=== PATIENT | female | born 1985 | race Asian ===

== ENCOUNTER 2021-05-26 05:26 | Inpatient (IN) ==
[2021-05-26] MEDS ORDERED: SODIUM CHLORIDE 0.9% 1000ML 1,000 ML IV ONE (06:37)
[2021-05-26] MEDS ORDERED: ONDANSETRON INJ 2 MG/ML 2 ML VIAL IV STA (06:37)
[2021-05-26] MEDS ORDERED: MoRPHine SULFATE 4 MG/ML 1 ML CARP\\VIAL IV STA (06:37)
--- NOTE | 2021-05-26 06:39 | Emergency Department Note ---
Impression & Plan Metastasis from pancreatic cancer ADMIT ED Provider Note HPI: The patient is a 36-year-old female who presents emergency department chief complaint of bilateral flank pain. Patient states she is also some constipation. Patient states the symptoms have been ongoing for about the past month. Patient states she had an episode of vomiting overnight and therefore presented to the emergency department for further evaluation. On arrival, the patient is hemodynamically stable, she is in no acute distress on my initial evaluation. She is saturating well on room air, afebrile on presentation. Of note, her at the bedside is serving as the primary historian as the patient does not primarily speak Croatian but does have fair understanding. ROS: -: Bilateral flank pain. -GI: Constipation x1 month. *10 point review systems was conducted and is otherwise negative unless stated above *Outpatient medications and allergy history reviewed PE: General: Alert, NAD HEENT: Normocephalic, atraumatic Eyes: Extraocular eye movement is intact, no scleral erythema Pulmonary: Clear to auscultation bilaterally, no wheezing Cardio: Regular rate and rhythm GI: Abdomen is soft, moderate flank tenderness bilaterally to palpation, moderate upper abdominal tenderness without guarding or rigidity : No suprapubic tenderness MSK: No evidence of trauma or malformation of the extremities, no edema Skin: No evidence of rash Neuro: Alert, no focal deficits Psychiatric: 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 IV was established, lab work obtained, patient was placed on a cardiac tech. CT imaging of the abdomen pelvis was ordered with IV contrast and unfortunately shows evidence of what appears to be pancreatic adenocarcinoma with metastasis to the liver and possibly the stomach as well. There is noted to be lymphatic metastasis near the periportal lymph nodes as well as the mesenteric arteries. Patient's lab work shows multiple electrolyte derangements including hyponatremia 121, hypokalemia 2.6, hypochloremia. Patient was IV fluid resuscitated in the ED. She was given morphine for pain. I discussed all the above findings via the coffee weigher iPad with the patient and her at the bedside, I did speak with on-call oncology, Dr. Victor, who is in agreement for inpatient consultation. We will plan for admission to the h ospitalist service here [facility] for oncology consultation to discuss further treatment options and possible biopsy although this does appear to be a very severe case of metastatic disease. I did stress the severity of the diagnosis with the and his at the bedside, they are understanding of the diagnosis at this time. Patient was ordered potassium repletion IV, will require further potassium repletion as an inpatient. Patient was in agreement for admission to this facility as was her at the bedside, patient was admitted to the hospitalist service in stable condition. Diagnosis: 1. Metastatic cancer of the abdomen on CT imaging 2. Acute on chronic abdominal pain 3. Hyponatremia 4. Hypokalemia 5. Hypochloremia 6. Constipation Disposition: Admission Dewayne Naik DO Emergency Medicine Past Med/Surg History Social History Smoking Status: Never smoker Preferred Language: Uzbek Feels Safe at Home: Yes Allergies Allergies Allergy/AdvReac Type Severity Reaction Status Date / Time No Known Allergies Allergy Unverified 05/26/21 08:02 Home Meds Home Medications Medication Instructions Recorded Confirmed bisacodyl 5 mg tablet,delayed 5 mg PO UD 05/26/21 05/26/21 release (Dulcolax (bisacodyl)) cyclobenzaprine 5 mg tablet 5 mg PO BID PRN 05/26/21 05/26/21 levocetirizine 5 mg tablet 5 mg PO BID 05/26/21 05/26/21 multivitamin 1 tab PO QAM 05/26/21 05/26/21 Results & Data (ED) Vital Signs Vital Signs - 24 hr 05/26/21 05:34 05/26/21 06:58 05/26/21 08:58 Temperature 36.5 C Temperature Source Temporal Artery Scan Pulse Rate 104 H Pulse Rate [Apical] 99 H 104 H Respiratory Rate 20 18 18 Respiratory Effort / Characteristics Non-Labored Respiratory Depth Normal Respiratory Pattern Regular Blood Pressure 128/88 Blood Pressure [Left Arm] 139/95 Blood Pressure Mean 101 Blood Pressure Mean [Left Arm] 109 Blood Pressure Position Sitting Pulse Oximetry 99 98 97 Oxygen Delivery Method Room Air Room Air Room Air Sepsis Recent Fever Within 48 Hours No Sepsis New/Unexplained Change in Mental Status N/A Sepsis Action Taken by Nursing No Action Required Laboratory Data Result diagrams: 05/26/21 06:09 05/26/21 06:15 Lab Results 05/26/21 05/26/21 05/26/21 Range/Units 06:09 06:12 06:12 WBC 7.60 (4.8-10.8) K/uL RBC 4.00 L (4.2-5.4) M/uL Hgb 10.9 L (12.0-16.0) g/dL Hct 32.3 L (37-47) % MCV 80.8 (80-100) fL MCH 27.3 (25-34) pg MCHC 33.7 (32-36) g/dL RDW Std Deviation 36.8 (36.4-46.3) fL RDW Coeff of Mary 12.6 (11.5-14.5) % Plt Count 357 (130-400) K/uL MPV 9.1 (7.4-10.4) fL Immature Gran % (Auto) 0.1 % Neut % (Auto) 74.8 % Lymph % (Auto) 12.8 % [place] % (Auto) 8.0 % Eos % (Auto) 4.2 % Baso % (Auto) 0.1 % Neut # (Auto) 5.68 (1.4-6.5) K/uL Lymph # (Auto) 0.97 L (1.2-3.4) K/uL [place] # (Auto) 0.61 H (0.11-0.59) K/uL Eos # (Auto) 0.32 (0-0.5) K/uL Baso # (Auto) 0.01 (0-0.2) K/uL Immature Gran # (Auto) 0.01 (0.00-0.02) K/uL Sodium (136-145) mmol/L Potassium (3.5-5.1) mmol/L Chloride (98-107) mmol/L Carbon Dioxide (21-32) mmol/L Anion Gap (3-11) BUN (6-23) mg/dl Creatinine (0.6-1.2) mg/dl Est Cr Clr Drug Dosing Est GFR ( Amer) ml/min Est GFR (Non-Af Amer) ml/min BUN/Creatinine Ratio (10-20) Glucose (70-99(Fasting)) mg/dl Calcium (8.5-10.1) mg/dl Total Bilirubin (0.2-1.0) mg/dl AST (13-39) U/L ALT (7-52) U/L Alkaline Phosphatase (34-104) U/L Total Protein (6.0-8.3) gm/dl Albumin (3.4-5.0) gm/dl Globulin (2.5-4.0) gm/dl Albumin/Globulin Ratio (0.9-2) Lipase (11-82) U/L Urine Color Yellow Urine Appearance Clear (Clear) Urine pH 7.0 (4.5-7.5) Ur Specific [place] 1.014 (1.000-1.030) Urine Protein Negative (Negative) Urine Glucose (UA) Negative (Negative) Urine Ketones 4+ H (Negative) Urine Blood 3+ H (Negative) Urine Nitrite Negative (Negative) Urine Bilirubin Negative (Negative) Urine Urobilinogen Negative (Negative) Ur Leukocyte Esterase Negative (Negative) Urine WBC (Auto) 1-5 (0-5) /hpf Urine RBC (Auto) >30 H (0-4) /hpf U Hyaline Cast (Auto) 1-5 (0-5) /lpf U Epithel Cells (Auto) 20-30 H (0-5) /lpf Urine Bacteria (Auto) Negative (Negative) POC Ur Test (NEG) Urine Opiates Screen Neg (Neg) Ur Methadone, Qual Neg (Neg) Urine Barbiturates Neg (Neg) Ur Phencyclidine (PCP) Neg (Neg) U Amphetamin/Meth Scrn Neg (Neg) MDMA (Ecstasy) Screen Neg (Neg) U Benzodiazepines Scrn Neg (Neg) Ur Cocaine Metabolite Neg (Neg) U Marijuana (THC) Screen Neg (Neg) 05/26/21 05/26/21 Range/Units 06:15 06:15 WBC (4.8-10.8) K/uL RBC (4.2-5.4) M/uL Hgb (12.0-16.0) g/dL Hct (37-47) % MCV (80-100) fL MCH (25-34) pg MCHC (32-36) g/dL RDW Std Deviation (36.4-46.3) fL RDW Coeff of Mary (11.5-14.5) % Plt Count (130-400) K/uL MPV (7.4-10.4) fL Immature Gran % (Auto) % Neut % (Auto) % Lymph % (Auto) % [place] % (Auto) % Eos % (Auto) % Baso % (Auto) % Neut # (Auto) (1.4-6.5) K/uL Lymph # (Auto) (1.2-3.4) K/uL [place] # (Auto) (0.11-0.59) K/uL Eos # (Auto) (0-0.5) K/uL Baso # (Auto) (0-0.2) K/uL Immature Gran # (Auto) (0.00-0.02) K/uL Sodium 121 L (136-145) mmol/L Potassium 2.6 L (3.5-5.1) mmol/L Chloride 87 L (98-107) mmol/L Carbon Dioxide 24 (21-32) mmol/L Anion Gap 10 (3-11) BUN 3 L (6-23) mg/dl Creatinine 0.38 L (0.6-1.2) mg/dl Est Cr Clr Drug Dosing Not Reportable Est GFR ( Amer) > 150.0 ml/min Est GFR (Non-Af Amer) 135.3 ml/min BUN/Creatinine Ratio 7.9 L (10-20) Glucose 117 H (70-99(Fasting)) mg/dl Calcium 8.7 (8.5-10.1) mg/dl Total Bilirubin 0.7 (0.2-1.0) mg/dl AST 16 (13-39) U/L ALT 14 (7-52) U/L Alkaline Phosphatase 63 (34-104) U/L Total Protein 7.3 (6.0-8.3) gm/dl Albumin 4.3 (3.4-5.0) gm/dl Globulin 3.0 (2.5-4.0) gm/dl Albumin/Globulin Ratio 1.4 (0.9-2) Lipase 18 (11-82) U/L Urine Color Urine Appearance (Clear) Urine pH (4.5-7.5) Ur Specific [place] (1.000-1.030) Urine Protein (Negative) Urine Glucose (UA) (Negative) Urine Ketones (Negative) Urine Blood (Negative) Urine Nitrite (Negative) Urine Bilirubin (Negative) Urine Urobilinogen (Negative) Ur Leukocyte Esterase (Negative) Urine WBC (Auto) (0-5) /hpf Urine RBC (Auto) (0-4) /hpf U Hyaline Cast (Auto) (0-5) /lpf U Epithel Cells (Auto) (0-5) /lpf Urine Bacteria (Auto) (Negative) POC Ur Test NEG (NEG) Urine Opiates Screen (Neg) Ur Methadone, Qual (Neg) Urine Barbiturates (Neg) Ur Phencyclidine (PCP) (Neg) U Amphetamin/Meth Scrn (Neg) MDMA (Ecstasy) Screen (Neg) U Benzodiazepines Scrn (Neg) Ur Cocaine Metabolite (Neg) U Marijuana (THC) Screen (Neg) Administered Medications Potassium Chloride/Sodium Chloride (Normal Saline W/20 Meq Kcl) 20 meq in 1,000 mls @ 150 mls/hr IV .Q6H40M [facility]; Protocol Stop: 06/25/21 07:14 Last Admin: 05/26/21 07:34 Dose: 150 mls/hr Documented by: [id number] Discontinued Medications Sodium Chloride (Nss 1000ml) 1,000 mls @ 999 mls/hr IV .Q1H1M ONE Stop: 05/26/21 07:37 Last Infusion: 05/26/21 07:57 Dose: 0 mls/hr Documented by: [id number] Admin: 05/26/21 06:49 Dose: 999 mls/hr Documented by: [id number] Ioversol (Optiray 320 100ml) 94 ml IV ONCE ONE Stop: 05/26/21 07:26 Last Admin: 05/26/21 07:25 Dose: 94 ml Documented by: [id number] Morphine Sulfate (Morphine Sulfate 4 Mg/Ml 1 Ml Carp\Vial) 4 mg IV NOW STA Stop: 05/26/21 06:38 Last Admin: 05/26/21 06:49 Dose: 4 mg Documented by: [id number] Ondansetron HCl (Ondansetron Inj 2 Mg/Ml 2 Ml Vial) 4 mg IV NOW STA Stop: 05/26/21 06:38 Last Admin: 05/26/21 06:49 Dose: 4 mg Documented by: [id number] Imaging Data Radiologist's Impression: Abdomen/Pelvis CT 05/26/21 06:[address] WITH IV CONTRAST CT DOSE: 286.28 mGy.cm HISTORY: Acute bilateral flank pain with nausea and vomiting b/l flank pain TECHNIQUE: Multiaxial CT images of the abdomen and pelvis were performed following the IV administration of 94 cc of Optiray, A dose lowering technique was utilized adhering to the principles of ALARA. COMPARISON STUDY: None. FINDINGS: Patchy bibasilar groundglass and nodular consolidative subcentimeter densities of the lung bases. Mild bibasilar mucous plugging. No pneumatosis or pneumoperitoneum. Unremarkable spleen, gallbladder and adrenal glands. Periportal edema. Patent portal vein. There are at least 5 suspicious masses of the liver measuring up to 2.3 cm within the right hepatic lobe. There is a large infiltrative mass involving the pancreatic body with ill-defined margins which renders it difficult to measure. Upstream pancreatic ductal dilation with numerous surround ing necrotic lymphatic metastasis which encases the celiac trunk, superior mesenteric and renal arteries. 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 The large and chronic mass encases and narrows the splenic artery with circumferential encasement of the common hepatic artery. Unremarkable kidneys. Urinary bladder is within normal limits. Heterogeneous uterus with suggestion of numerous fibroids. Small volume of free pelvic fluid. No abdominal aortic aneurysm. Unremarkable IVC. There is wall thickening involving the lesser curvature of the stomach with adjacent inflammatory stranding additional wall thickening is noted within the distal stomach. No biliary ductal dilation. Trace abdominal pelvic ascites. Moderate fecal retention. Nonspecific mild wall thickening of the ascending colon. The appendix is fluid-filled however appears noninflamed. Unremarkable soft tissues. No acute fracture or destructive bone lesion identified. IMPRESSION: 1. Large infiltrative pancreatic body mass suggestive of primary pancreatic adenocarcinoma results in upstream pancreatic ductal dilation. Vascular involvement includes occlusion of the splenic vein with encasement of the celiac trunk vessels resulting in narrowing of the splenic artery. 2. Hepatic metastasis are noted along with multifocal gastrohepatic, periportal and retroperitoneal lymphatic metastasis. Lymphatic metastasis encase the superior mesenteric and renal arteries. 3. There is wall thickening with adjacent inflammatory stranding involving the greater curvature of the proximal stomach suspicious for gastric invasion. 4. Periportal edema without evidence of biliary obstruction. 5. Moderate fecal retention. 6. Additional findings as above. ACT 112: Negative or not required by law. The above report was generated using voice recognition software. It may contain grammatical, syntax or spelling errors. Electronically signed by: Adonay Green M.D. 05/26/2021 8:22 AM Discharge Plan Visit Data Chief Complaint: Back Injury/Pain Stated Complaint: BACK PAIN,ABD PAIN,NAUSEA,TENSION ED Provider: Dewayne Naik Discharge Problem: Metastasis from pancreatic cancer Forms Stand Alone Forms: [facility] Prescriptions Prescriptions: No Action multivitamin Tablet 1 tab PO QAM RF: 0 bisacodyl [Dulcolax (bisacodyl)] 5 mg Tablet,Delayed Release (Dr/Ec) 5 mg PO UD RF: 0 cyclobenzaprine 5 mg tablet 5 mg PO BID PRN (Reason: Muscle Spasm) RF: 0 levocetirizine 5 mg tablet 5 mg PO BID RF: 0 Referrals Referrals: PCP,NO [Primary Care Provider] -
[2021-05-26 06:47] LABS: Basophils # (auto) 0.01 K/uL (0-0.2); Basophils % (auto) 0.1 %; Eosinophils # (auto) 0.32 K/uL (0-0.5); Eosinophils % (auto) 4.2 %; Hematocrit (blood only) 32.3 % (37-47); Hemoglobin 10.9 g/dL (12.0-16.0); Immature Granulocytes # (auto) 0.01 K/uL (0.00-0.02); Immature Granulocytes % (auto) 0.1 %; Lymphocytes # (auto) 0.97 K/uL (1.2-3.4); Lymphocytes % (auto) 12.8 %; Mean Corpuscular Hemoglobin 27.3 pg (25-34); Mean Corpuscular Hgb Conc 33.7 g/dL (32-36); Mean Corpuscular Volume 80.8 fL (80-100); Mean Platelet Volume 9.1 fL (7.4-10.4); Monocytes # (auto) 0.61 K/uL (0.11-0.59); Neutrophils # (auto) 5.68 K/uL (1.4-6.5); Neutrophils % (auto) 74.8 %; Platelet Count 357 K/uL (130-400); RDW Coefficient of Variation 12.6 % (11.5-14.5); RDW Standard Deviation 36.8 fL (36.4-46.3)
[2021-05-26 06:59] LABS: Appearance Urine Clear (Clear); Bacteria Urine Automated Negative (Negative); Bilirubin Urine Negative (Negative); Blood Urine 3+ (Negative); Color Urine Yellow; Epithelial Cell Urine Auto 20-30 /lpf (0-5); Glucose Urine UA Negative (Negative); Ketones Urine 4+ (Negative); Leukocyte Esterase Urine Negative (Negative); Nitrite Urine Negative (Negative); Protein Urine Negative (Negative); RBC Urine Automated >30 /hpf (0-4); Specific Gravity Urine 1.014 (1.000-1.030); Urobilinogen Urine Negative (Negative)
[2021-05-26 07:02] LABS: Alanine Aminotransferase 14 U/L (7-52); Albumin Globulin Ratio 1.4 (0.9-2); Albumin Level 4.3 gm/dl (3.4-5.0); Alkaline Phosphatase 63 U/L (34-104); Anion Gap 10 (3-11); Aspartate Aminotransferase 16 U/L (13-39); BUN Creatinine Ratio 7.9 (10-20); Bilirubin,Total 0.7 mg/dl (0.2-1.0); Blood Urea Nitrogen 3 mg/dl (6-23); Calcium 8.7 mg/dl (8.5-10.1); Carbon Dioxide 24 mmol/L (21-32); Chloride 87 mmol/L (98-107); Est GFR (African American) > 150.0 ml/min; Est GFR (Non-African American) 135.3 ml/min; Glucose 117 mg/dl (70-99(Fasting)); Lipase 18 U/L (11-82); Potassium 2.6 mmol/L (3.5-5.1); Sodium 121 mmol/L (136-145); Total Protein 7.3 gm/dl (6.0-8.3)
[2021-05-26] MEDS ORDERED: NSS + 20MEQ KCL 20 MEQ/1,000 ML BAG IV SCH ×2 (07:15→12:48)
[2021-05-26] MEDS ORDERED: OPTIRAY 320 100ml IV ONE (07:25)
[2021-05-26 07:58] LABS: Amphetamines+Metham, Urine Neg (Neg); Barbiturates, Urine Neg (Neg); Benzodiazepine, Urine Neg (Neg); Cocaine, Urine Neg (Neg); MDMA (Ecstacy), Urine Neg (Neg); Methadone, Urine Neg (Neg); Opiate, Urine Neg (Neg); Phencyclidine, Urine Neg (Neg)
--- NOTE | 2021-05-26 08:23 | CT Scan Report ---
ABDOMEN AND PELVIS CT WITH IV CONTRAST CT DOSE: 286.28 mGy.cm HISTORY: Acute bilateral flank pain with nausea and vomiting b/l flank pain TECHNIQUE: Multiaxial CT images of the abdomen and pelvis were performed following the IV administrat ion of 94 cc of Optiray, A dose lowering technique was utilized adhering to the principles of ALARA. COMPARISON STUDY: None. FINDINGS: Patchy bibasilar groundglass and nodular consolidative subcentimeter densities of the lung bases. Mild bibasilar mucous plugging. No pneumatosis or pneumoperitoneum. Unremarkable spleen, gallbladder and adrenal glands. Periportal edema. Patent portal vein. There are at least 5 suspicious masses of the liver measuring up to 2.3 cm within the right hepatic lobe. There is a large infiltrative mass involving the pancreatic body with ill-defined margins which renders it difficult to measure. Upstream pancreatic ductal dilation with numerous surrounding necrotic lymphat ic metastasis which encases the celiac trunk, superior mesenteric and renal arteries. There is occlus ion of the splenic vein with collateral vessels. The large and chronic mass encases and narrows the s plenic artery with circumferential encasement of the common hepatic artery. Unremarkable kidneys. Urinary bladder is within normal limits. Heterogeneous uterus with suggestion o f numerous fibroids. Small volume of free pelvic fluid. No abdominal aortic aneurysm. Unremarkable IV C. There is wall thickening involving the lesser curvature of the stomach with adjacent inflammatory str anding additional wall thickening is noted within the distal stomach. No biliary ductal dilation. Tra ce abdominal pelvic ascites. Moderate fecal retention. Nonspecific mild wall thickening of the ascend ing colon. The appendix is fluid-filled however appears noninflamed. Unremarkable soft tissues. No ac marisela fracture or destructive bone lesion identified. IMPRESSION: 1. Large infiltrative pancreatic body mass suggestive of primary pancreatic adenocarcinoma results in upstream pancreatic ductal dilation. Vascular involvement includes occlusion of the splenic vein wit h encasement of the celiac trunk vessels resulting in narrowing of the splenic artery. 2. Hepatic metastasis are noted along with multifocal gastrohepatic, periportal and retroperitoneal l ymphatic metastasis. Lymphatic metastasis encase the superior mesenteric and renal arteries. 3. There is wall thickening with adjacent inflammatory stranding involving the greater curvature of t he proximal stomach suspicious for gastric invasion. 4. Periportal edema without evidence of biliary obstruction. 5. Moderate fecal retention. 6. Additional findings as above. ACT 112: Negative or not required by law. The above report was generated using voice recognition software. It may contain grammatical, syntax o r spelling errors. Electronically signed by: Adonay Green M.D. 05/26/2021 8:22 AM
[2021-05-26] MEDS ORDERED: POTASSIUM CHLORIDE CRTAB 20 MEQ TABCR PO STA (09:25)
--- NOTE | 2021-05-26 09:40 | History & Physical Report ---
Date of Service May 26, 2021 Assessment & Plan (1) Metastasis from pancreatic cancer: (2) Abdominal pain: (3) Hypokalemia: (4) Hyponatremia: Plan: This is a 36 yr old Polish speaking female who is otherwise healthy except for chronic constipation who presents to ED 2/2 to low back pain x [address] a/p: 1. Large infiltrative pancreatic body mass suggestive of primary pancreatic adenocarcinoma results in upstream pancreatic ductal dilation. V ascular involvement includes occlusion of the splenic vein with encasement of the celiac trunk vessels resulting in narrowing of the splenic artery. 2. Hepatic metastasis are noted along with multifocal gastrohepatic, periportal and retroperitoneal lymphatic metastasis. Lymphatic metastasis encase the superior mesenteric and renal arteries. 3. There is wall thickening with adjacent inflammatory stranding involving the greater curvature of the proximal stomach suspicious for gastric invasion. 4. Periportal edema without evidence of biliary obstruction. 5. Moderate fecal retention. Abdominal Pain Back Pain Evidence of Large pancreatitis mass concerning for pancreatic adenocarcinoma Evidence of metastasis to liver, stomach and lymph admit to tele consult oncology Dr. Barnard consult gastroenterology Dr. Nova for possible biopsy obtain CT head, chest, lumbar and thoracic pain control clear liquids for now Hypomagnesemia Hypokalemia likely due to GI loss and poor intake replace Hyponatremia Na 121, chronicity unknown but likely > 48hrs given overall condition no mental status change bmp q6h given poor intake will hydrate with NS + Kcl consult nephrology Constipation likely due to large mass bowel regimen ordered Microscopic hematuria noted on UA, repeat in a.m. Dispo: tele for electrolyte replacement and evaluation by oncology FULL CODE PCP: Dr. Dana Palomino Pt was seen and examined in collaboration with Dr. Ying, please see addendum History of Present Illness Chief Complaint: Back pain x 1 month. Primary Care Provider: Dana Palomino This is a 36 yr old Polish speaking female who is otherwise healthy except for chronic constipation who presents to ED 2/2 to low back pain x 1 month. Pain is mostly in mid to lower back, L greater than R. It is worse at night and with lying down. Pain improves with standing. It is constant but waxes and wanes in severity. She further complains of constipation, nausea, poor appetite x 1 week and emesis x 2 last evening. She denies any hematemesis, melena, hematochezia, f/c/s, dizziness, lightheaded, chest pain, sob, uri sx, dysuria, increased urinary freq/urgency or hematuria. Over past week she has lost 5kg. She has been maintaining her fluids with 1-2L of water daily. She does complain of post prandial epigastric pain. is at bedside. She has no known medical problems and no prior surgeries. She does have a FH of uncle who recently passed of gastric cancer and 90 yr old GMA who passed of gastric cancer. In ED pt was hemodynamically stable. She was found to have hyponatremia, hypokalemia, and anemia. She underwent CT a/p which revealed Large infiltrative pancreatic body mass suggestive of primary pancreatic adenocarcinoma results in upstream pancreatic ductal dilation. Vascular involvement includes occlusion of the splenic vein with encasement of the celiac trunk vessels resulting in narrowing of the splenic artery. 2. Hepatic metastasis are noted along with multifocal gastrohepatic, periportal and retroperitoneal lymphatic metastasis. Lymphatic metastasis encase the superior mesenteric and renal arteries. 3. There is wall thickening with adjacent inflammatory stranding involving the greater curvature of the proximal stomach suspicious for gastric invasion. ED provider did discuss cased with oncology Dr. Barnard who recommended admission and possible biopsy as well as electrolyte repletion. Allergies Allergy/AdvReac Type Severity Reaction Status Date / Time No Known Allergies Allergy Unverified 05/26/21 08:02 Home Medications Medication Instructions Recorded Confirmed Type bisacodyl 5 mg tablet,delayed 5 mg PO UD 05/26/21 05/26/21 History release (Dulcolax (bisacodyl)) cyclobenzaprine 5 mg tablet 5 mg PO BID PRN 05/26/21 05/26/21 History levocetirizine 5 mg tablet 5 mg PO BID 05/26/21 05/26/21 History multivitamin 1 tab PO QAM 05/26/21 05/26/21 History Past Med/Surg History Medical History Anemia Hypokalemia Hyponatremia Metastasis from pancreatic cancer Surgical History No pertinent past surgical history Family History Uncle Gastric cancer Grandmother (Maternal) Gastric cancer Social History (Updated 05/26/21 @ 10:49 by Rula Arita PA-C) Smoking Status: Former smoker Hx Alcohol Use: Yes Hx Substance Use: No Preferred Language: Polish Communication Ability: Effective Communication Ability Comment: 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: IPad In Store Marketer Required: Yes Beliefs That Will Affect Care: None marital status: Current Living Situation: Spouse and Family Current Living Situation Comment: and 2 children Feels Safe at Home: Yes Safety Concerns: Feels Safe At This Time Assistive Devices: Glasses Review of Systems Review of Systems: All systems reviewed & are unremarkable except as noted in HPI & below Physical Exam Physical Exam: Constitutional: WD/WN, petite, northern [place] female, vitals as above, NAD, sitting up in bed, pleasant, conversing easily Head: Normocephalic, Atraumatic Eyes: PERRL, conjunctivae normal, anicteric sclerae ENMT: external ear and nose normal, oropharynx normal Neck: trachea midline, no thyromegaly normal visual inspection Respiratory: normal respiratory effort, lungs clear to auscultation, no wheeze, rales, rhonchi. Normal insp/exp effort, no accessory muscle use Cardiovascular: RRR, no murmur, no edema Vessels: no JVD or carotid bruit Chest: normal inspection of chest Abdomen: normal bowel sounds, soft, nontender, mild distension Musculoskeletal: no cyanosis or clubbing, extremities motor strength 5/5 Skin: no rashes, warm and dry normal turgor Neurologic: PERRL, EOMI, accommodation nl, no face palsy, no dysarthria CN's II-XI intact bilaterally and moves all extremities Psychiatric: A+Ox3, euthymic affect Lymphatic: no cervical or axillary lymphadenopathy : deferred Results & Data Results & Data ([facility]) Vital Signs (Past 12 Hours) Vital Signs Temp Pulse Pulse Resp BP BP Pulse Ox 05/26/21 08:58 104 H 18 139/95 97 05/26/21 06:58 99 H 18 98 05/26/21 05:34 36.5 C 104 H 20 128/88 99 Diagnostic Findings Abdomen/Pelvis CT 05/26/21 06:[address] WITH IV CONTRAST CT DOSE: 286.28 mGy.cm HISTORY: Acute bilateral flank pain with nausea and vomiting b/l flank pain TECHNIQUE: Multiaxial CT images of the abdomen and pelvis were performed following the IV administration of 94 cc of Optiray, A dose lowering technique was utilized adhering to the principles of ALARA. COMPARISON STUDY: None. FINDINGS: Patchy bibasilar groundglass and nodular consolidative subcentimeter densities of the lung bases. Mild bibasilar mucous plugging. No pneumatosis or pneumoperitoneum. Unremarkable spleen, gallbladder and adrenal glands. Periportal edema. Patent portal vein. There are at least 5 suspicious masses of the liver measuring up to 2.3 cm within the right hepatic lobe. There is a large infiltrative mass involving the pancreatic body with ill-defined margins which renders it difficult to measure. Upstream pancreatic ductal dilation with numerous surrounding necrotic lymphatic metastasis which encases the celiac trunk, superior mesenteric and renal arteries. 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 The large and chronic mass encases and narrows the splenic artery with circumferential encasement of the common hepatic artery. Unremarkable kidneys. Urinary bladder is within normal limits. Heterogeneous uterus with suggestion of numerous fibroids. Small volume of free pelvic fluid. No abdominal aortic aneurysm. Unremarkable IVC. There is wall thickening involving the lesser curvature of the stomach with adjacent inflammatory stranding additional wall thickening is noted within the distal stomach. No biliary ductal dilation. Trace abdominal pelvic ascites. Moderate fecal retention. Nonspecific mild wall thickening of the ascending col on. The appendix is fluid-filled however appears noninflamed. Unremarkable soft tissues. No acute fracture or destructive bone lesion identified. IMPRESSION: 1. Large infiltrative pancreatic body mass suggestive of primary pancreatic adenocarcinoma results in upstream pancreatic ductal dilation. Vascular involvement includes occlusion of the splenic vein with encasement of the celiac trunk vessels resulting in narrowing of the splenic artery. 2. Hepatic metastasis are noted along with multifocal gastrohepatic, periportal and retroperitoneal lymphatic metastasis. Lymphatic metastasis encase the superior mesenteric and renal arteries. 3. There is wall thickening with adjacent inflammatory stranding involving the greater curvature of the proximal stomach suspicious for gastric invasion. 4. Periportal edema without evidence of biliary obstruction. 5. Moderate fecal retention. 6. Additional findings as above. ACT 112: Negative or not required by law. The above report was generated using voice recognition software. It may contain grammatical, syntax or spelling errors. Electronically signed by: Adonay Green M.D. 05/26/2021 8:22 AM Medications Administered Medication List Potassium Chloride/Sodium Chloride (Normal Saline W/20 Meq Kcl) 20 meq in 1,000 mls @ 150 mls/hr IV .Q6H40M [facility]; Protocol Stop: 06/25/21 07:14 Last Admin: 05/26/21 07:34 Dose: 150 mls/hr Documented by: [id number] Discontinued Medications Sodium Chloride (Nss 1000ml) 1,000 mls @ 999 mls/hr IV .Q1H1M ONE Stop: 05/26/21 07:37 Last Infusion: 05/26/21 07:57 Dose: 0 mls/hr Documented by: [id number] Admin: 05/26/21 06:49 Dose: 999 mls/hr Documented by: [id number] Ioversol (Optiray 320 100ml) 94 ml IV ONCE ONE Stop: 05/26/21 07:26 Last Admin: 05/26/21 07:25 Dose: 94 ml Documented by: [id number] Morphine Sulfate (Morphine Sulfate 4 Mg/Ml 1 Ml Carp\Vial) 4 mg IV NOW STA Stop: 05/26/21 06:38 Last Admin: 05/26/21 06:49 Dose: 4 mg Documented by: [id number] Ondansetron HCl (Ondansetron Inj 2 Mg/Ml 2 Ml Vial) 4 mg IV NOW STA Stop: 05/26/21 06:38 Last Admin: 05/26/21 06:49 Dose: 4 mg Documented by: [id number] COVID-19 Results Results COVID-19 Adm Lab Results: RBC 4.00 M/uL (4.2-5.4) L 05/26/21 WBC 7.60 K/uL (4.8-10.8) 05/26/21 Hgb 10.9 g/dL (12.0-16.0) L 05/26/21 Hct 32.3 % (37-47) L 05/26/21 Plt Count 357 K/uL (130-400) 05/26/21 Neutrophils (%) (Auto) 74.8 % 05/26/21 Lymphocytes (%) (Auto) 12.8 % 05/26/21 Monocytes # (Auto) 0.61 K/uL (0.11-0.59) H 05/26/21 Eosinophils # (Auto) 0.32 K/uL (0-0.5) 05/26/21 Immature Granulocyte % (Auto) 0.1 % 05/26/21 Neutrophils # (Auto) 5.68 K/uL (1.4-6.5) 05/26/21 Lymphocytes # (Auto) 0.97 K/uL (1.2-3.4) L 05/26/21 Monocytes # (Auto) 0.61 K/uL (0.11-0.59) H 05/26/21 Eosinophils # (Auto) 0.32 K/uL (0-0.5) 05/26/21 Basophils # (Auto) 0.01 K/uL (0-0.2) 05/26/21 Immature Granulocyte # (Auto) 0.01 K/uL (0.00-0.02) 05/26/21 Na 131 mmol/L (136-145) L 05/26/21 K 3.1 mmol/L (3.5-5.1) L 05/26/21 Cl 100 mmol/L (98-107) 05/26/21 CO2 24 mmol/L (21-32) 05/26/21 Anion Gap 7 (3-11) 05/26/21 BUN 2 mg/dl (6-23) L 05/26/21 Creatinine 0.50 mg/dl (0.6-1.2) L 05/26/21 BUN/Creatinine Ratio 4.0 (10-20) L 05/26/21 Glucose Level 266 mg/dl (70-99(Fasting)) H 05/26/21 Ca 8.6 mg/dl (8.5-10.1) 05/26/21 Total Bilirubin 0.7 mg/dl (0.2-1.0) 05/26/21 AST/SGOT 16 U/L (13-39) 05/26/21 ALT/SGPT 14 U/L (7-52) 05/26/21 Alkaline Phosphatase 63 U/L (34-104) 05/26/21 Total Protein 7.3 gm/dl (6.0-8.3) 05/26/21 Albumin 4.3 gm/dl (3.4-5.0) 05/26/21 Globulin 3.0 gm/dl (2.5-4.0) 05/26/21 Albumin/Globulin Ratio 1.4 (0.9-2) 05/26/21 Procalcitonin < 0.05 ng/ml (0-0.5) 05/26/21 SARS-CoV-2, RNA, NAAT NEGATIVE (NEGATIVE) 05/26/[address] 05/26/21 Code Status & VTE Plan Code Status FULL CODE VTE Prophylaxis Plan VTE Prophylaxis will be ordered: Yes Supervising Physician Co-Signing Physician Notes Patient is a 36-year-old female who presents with history of low back pain, constipation, abdominal discomfort, poor appetite, weight loss associated with nausea and vomiting which have been gradually worsening. Please review HPI for complete details of presentation. Blood work showed hemoglobin 10.9, hematocrit 32.3, sodium 121, potassium 2.6, chloride 87, creatinine 0.38, glucose 117, magnesium 1.5, normal LFTs. CT abdomen showed large infiltrative pancreatic body mass suggestive of primary pancreatic adenocarcinoma, vascular involvement with occlusion of the splenic vein and narrowing of splenic artery, hepatic metastasis and multifocal gastrohepatic, periportal and retroperitoneal lymphatic metastasis noted. Gastric wall thickening with adjacent inflammatory stranding involving the greater curvature of the proximal stomach noted. CT [address] showed multilobular multifocal groundglass and irregular consolidative opacities, mild bibasilar mucous plugging. On exam patient is moderately built and nourished, no apparent distress, normocephalic atraumatic, EOMI, normal breath sounds, clear to auscultation, S1-S2, no murmur, no pedal edema, abdomen soft, mild epigastric tenderness, mildly distended, normal bowel sounds, alert, awake, oriented, grossly no focal deficits. Patient is admitted for management of metastatic disease. Also to manage hypokalemia, hypomagnesemia and hyponatremia. Appreciate GI input. Keep her n.p.o. after midnight for endoscopic ultrasound tomorrow. Oncology and nephrology consulted. Replace electrolytes. Monitor sodium levels closely. Gentle IV fluids. Bowel regimen for constipation. I personally reviewed the record. Patient is interviewed and examined at bedside. Patient's care is coordinated with Rula Arita PA-C. Please refer to the documentation above for details of patient's presentation and for discussion of other issues.
[2021-05-26] MEDS: POTASSIUM CHLORIDE / WTR 10 MEQ/100 ML PLCT IV SCH ×2 (09:48→11:20)
[2021-05-26] MEDS ORDERED: KETOROLAC TROMETHAMINE 15 MG/ML VIAL IV ONE (10:37)
--- NOTE | 2021-05-26 10:55 | Gastrointestinal Consultation ---
Date of Consultation May 26, 2021 Assessment & Plan (1) Abdominal pain: 36 year old female presenting with back pain x 1 month, upper abd pain, decreased appetite, nausea/vomiting x 1-2 weeks with 5kg weight loss, imaging concerning for a large infiltrative pancreatic mass w/ vascular involvement and concern for hepatic metastasis. There is also some thickening of the gastric lining. Can continue liquids today NPO after midnight for EGD/EUS Sunday PO PPI BID Trend HGB Monitor output Transfuse PRN HGB < 8 Analgesia PRN Antiemetics PRN Agree with oncology consultation Please ensure repletion of NA and K for endoscopy tomorrow Thank you for allowing us to participate in the care of this patient. Please call with any acute changes, questions or concerns. Please see addendum below with additional recommendation from my supervising physician. Supervising Physician Co-Signing Physician Notes Attg add: I interviewed and examined pt, reviewed chart and labs. Pt admit with abdominal pain, CT shows mass in pancrease invading stomach wall, also liver lesions. LFTs normal. Marked hypoNA and hypoK. FH stomach breast ca. A/P: Advanced panc ca vs stomach cancer (Hereditary diffuse gastric cancer given young age and FH gastric and breast ca?) - Will plan EGD, will need lytes corrected. History of Present Illness Reason for Consultation: pancreatic mass Requesting Physician: Stepan Attending Physician: Stepan History of Present Illness 36 year old female without past medical history admitted through the ED, imaging concerning for pancreatic mass and liver lesions. Pt was seen and evaluated, chart reviewed. and two children at bedside in the ED, deaf interpreter on iPad was utilized. She notes history of back pain x 1 month. About 1-2 weeks ago developed upper abd pain as well. There has been associated decpreased appetite, nausea/vomiting x 1 week. Denies any black or bloody emesis. No GERD. No dysphagia. No change in bowel habits. Lost about 5Kg in the last month. No fever, chills, CP, SOB. No AC No NSAIDs No ETOH No tobacco + family history of breast cancer in mother + family history of stomach cancer in uncler and grandmother CTAP 2021: Large infiltrative pancreatic body mass suggestive of primary pancreatic adenocarcinoma results in upstream pancreatic ductal dilation. Vascular involvement includes occlusion of the splenic vein with encasement of the celiac trunk vessels resulting in narrowing of the splenic artery. Hepatic metastasis are noted along with multifocal gastrohepatic, periportal and retroperitoneal lymphatic metastasis. Lymphatic metastasis encase the superior mesenteric and renal arteries.. There is wall thickening with adjacent inflammatory stranding involving the greater curvature of the proximal stomach suspicious for gastric invasion.Periportal edema without evidence of biliary obstruction. Moderate fecal retention. Allergies Allergy/AdvReac Type Severity Reaction Status Date / Time No Known Allergies Allergy Unverified 05/26/21 08:02 Home Medications Medication Instructions Recorded Confirmed Type bisacodyl 5 mg tablet,delayed 5 mg PO UD 05/26/21 05/26/21 History release (Dulcolax (bisacodyl)) cyclobenzaprine 5 mg tablet 5 mg PO BID PRN 05/26/21 05/26/21 History levocetirizine 5 mg tablet 5 mg PO BID 05/26/21 05/26/21 History multivitamin 1 tab PO QAM 05/26/21 05/26/21 History Patient History Medical History (Updated 05/26/21 @ 10:53 by Rula Arita PA-C) No pertinent past medical history Surgical History (Updated 05/26/21 @ 10:48 by Rula Arita PA-C) No pertinent past surgical history Family History (Updated 05/26/21 @ 10:48 by Rula Arita PA-C) Uncle Gastric cancer Grandmother (Maternal) Gastric cancer Social History (Updated 05/26/21 @ 10:49 by Rula Arita PA-C) Smoking Status: Never smoker Hx Alcohol Use: No Hx Substance Use: No Preferred Language: [facility] marital status: Current Living Situation: Family Current Living Situation Comment: 2 sons Feels Safe at Home: Yes Review of Systems Review of Systems: All systems reviewed & are unremarkable except as noted in HPI & below Physical Exam Constitutional: WD/WN, vitals as above Eyes: PERRL Neck: trachea midline, no thyromegaly Respiratory: normal respiratory effort, lungs clear to auscultation Cardiovascular: Rate/Rhythm: regular rate and regular rhythm Gastrointestinal (Abdomen): Inspection/Auscultation: abdomen normal to inspection and normal bowel sounds Percussion/Palpation: + abdomen tender (mild discomfort with palpation) and abdomen soft; no guarding, abdomen not rigid and no abdominal mass Skin: no rashes, warm and dry Results & Data ([facility]) Vital Signs (Past 12 Hours) Vital Signs Temp Pulse Pulse Resp BP BP Pulse Ox 05/26/21 10:00 100 H 18 133/95 97 05/26/21 08:58 104 H 18 139/95 97 05/26/21 06:58 99 H 18 98 05/26/21 05:34 36.5 C 104 H 20 128/88 99 Laboratory Results 05/26/21 05/26/21 05/26/21 Range/Units 09:46 09:46 09:02 WBC (4.8-10.8) K/uL RBC (4.2-5.4) M/uL Hgb (12.0-16.0) g/dL Hct (37-47) % MCV (80-100) fL MCH (25-34) pg MCHC (32-36) g/dL RDW Std Deviation (36.4-46.3) fL RDW Coeff of Mary (11.5-14.5) % Plt Count (130-400) K/uL MPV (7.4-10.4) fL Immature Gran % (Auto) % Neut % (Auto) % Lymph % (Auto) % [place] % (Auto) % Eos % (Auto) % Baso % (Auto) % Neut # (Auto) (1.4-6.5) K/uL Lymph # (Auto) (1.2-3.4) K/uL [place] # (Auto) (0.11-0.59) K/uL Eos # (Auto) (0-0.5) K/uL Baso # (Auto) (0-0.2) K/uL Immature Gran # (Auto) (0.00-0.02) K/uL Sodium (136-145) mmol/L Potassium (3.5-5.1) mmol/L Chloride (98-107) mmol/L Carbon Dioxide (21-32) mmol/L Anion Gap (3-11) BUN (6-23) mg/dl Creatinine (0.6-1.2) mg/dl Est Cr Clr Drug Dosing Est GFR ( Amer) ml/min Est GFR (Non-Af Amer) ml/min BUN/Creatinine Ratio (10-20) Glucose (70-99(Fasting)) mg/dl Osmolality 261 L (280-300) mOsm/kg Calcium (8.5-10.1) mg/dl Magnesium 1.5 L (1.7-2.4) mg/dl Total Bilirubin (0.2-1.0) mg/dl AST (13-39) U/L ALT (7-52) U/L Alkaline Phosphatase (34-104) U/L Total Protein (6.0-8.3) gm/dl Albumin (3.4-5.0) gm/dl Globulin (2.5-4.0) gm/dl Albumin/Globulin Ratio (0.9-2) Lipase (11-82) U/L Urine Color Urine Appearance (Clear) Urine pH (4.5-7.5) Ur Specific [place] (1.000-1.030) Urine Protein (Negative) Urine Glucose (UA) (Negative) Urine Ketones (Negative) Urine Blood (Negative) Urine Nitrite (Negative) Urine Bilirubin (Negative) Urine Urobilinogen (Negative) Ur Leukocyte Esterase (Negative) Urine WBC (Auto) (0-5) /hpf Urine RBC (Auto) (0-4) /hpf U Hyaline Cast (Auto) (0-5) /lpf U Epithel Cells (Auto) (0-5) /lpf Urine Bacteria (Auto) (Negative) Urine Osmolality (500-800) mOsm/kg Ur Random Sodium mmol/L POC Ur Test (NEG) Urine Opiates Screen (Neg) Ur Methadone, Qual (Neg) Urine Barbiturates (Neg) Ur Phencyclidine (PCP) (Neg) U Amphetamin/Meth Scrn (Neg) MDMA (Ecstasy) Screen (Neg) U Benzodiazepines Scrn (Neg) Ur Cocaine Metabolite (Neg) U Marijuana (THC) Screen (Neg) SARS-CoV-2, RNA, NAAT NEGATIVE (NEGATIVE) 05/26/21 05/26/21 05/26/21 Range/Units 06:15 06:15 06:12 WBC (4.8-10.8) K/uL RBC (4.2-5.4) M/uL Hgb (12.0-16.0) g/dL Hct (37-47) % MCV (80-100) fL MCH (25-34) pg MCHC (32-36) g/dL RDW Std Deviation (36.4-46.3) fL RDW Coeff of Mary (11.5-14.5) % Plt Count (130-400) K/uL MPV (7.4-10.4) fL Immature Gran % (Auto) % Neut % (Auto) % Lymph % (Auto) % [place] % (Auto) % Eos % (Auto) % Baso % (Auto) % Neut # (Auto) (1.4-6.5) K/uL Lymph # (Auto) (1.2-3.4) K/uL [place] # (Auto) (0.11-0.59) K/uL Eos # (Auto) (0-0.5) K/uL Baso # (Auto) (0-0.2) K/uL Immature Gran # (Auto) (0.00-0.02) K/uL Sodium 121 L (136-145) mmol/L Potassium 2.6 L (3.5-5.1) mmol/L Chloride 87 L (98-107) mmol/L Carbon Dioxide 24 (21-32) mmol/L Anion Gap 10 (3-11) BUN 3 L (6-23) mg/dl Creatinine 0.38 L (0.6-1.2) mg/dl Est Cr Clr Drug Dosing Not Reportable Est GFR ( Amer) > 150.0 ml/min Est GFR (Non-Af Amer) 135.3 ml/min BUN/Creatinine Ratio 7.9 L (10-20) Glucose 117 H (70-99(Fasting)) mg/dl Osmolality (280-300) mOsm/kg Calcium 8.7 (8.5-10.1) mg/dl Magnesium (1.7-2.4) mg/dl Total Bilirubin 0.7 (0.2-1.0) mg/dl AST 16 (13-39) U/L ALT 14 (7-52) U/L Alkaline Phosphatase 63 (34-104) U/L Total Protein 7.3 (6.0-8.3) gm/dl Albumin 4.3 (3.4-5.0) gm/dl Globulin 3.0 (2.5-4.0) gm/dl Albumin/Globulin Ratio 1.4 (0.9-2) Lipase 18 (11-82) U/L Urine Color Urine Appearance (Clear) Urine pH (4.5-7.5) Ur Specific [place] (1.000-1.030) Urine Protein (Negative) Urine Glucose (UA) (Negative) Urine Ketones (Negative) Urine Blood (Negative) Urine Nitrite (Negative) Urine Bilirubin (Negative) Urine Urobilinogen (Negative) Ur Leukocyte Esterase (Negative) Urine WBC (Auto) (0-5) /hpf Urine RBC (Auto) (0-4) /hpf U Hyaline Cast (Auto) (0-5) /lpf U Epithel Cells (Auto) (0-5) /lpf Urine Bacteria (Auto) (Negative) Urine Osmolality (500-800) mOsm/kg Ur Random Sodium 119 mmol/L POC Ur Test NEG (NEG) Urine Opiates Screen (Neg) Ur Methadone, Qual (Neg) Urine Barbiturates (Neg) Ur Phencyclidine (PCP) (Neg) U Amphetamin/Meth Scrn (Neg) MDMA (Ecstasy) Screen (Neg) U Benzodiazepines Scrn (Neg) Ur Cocaine Metabolite (Neg) U Marijuana (THC) Screen (Neg) SARS-CoV-2, RNA, NAAT (NEGATIVE) 05/26/21 05/26/21 05/26/21 Range/Units 06:12 06:12 06:12 WBC (4.8-10.8) K/uL RBC (4.2-5.4) M/uL Hgb (12.0-16.0) g/dL Hct (37-47) % MCV (80-100) fL MCH (25-34) pg MCHC (32-36) g/dL RDW Std Deviation (36.4-46.3) fL RDW Coeff of Mary (11.5-14.5) % Plt Count (130-400) K/uL MPV (7.4-10.4) fL Immature Gran % (Auto) % Neut % (Auto) % Lymph % (Auto) % [place] % (Auto) % Eos % (Auto) % Baso % (Auto) % Neut # (Auto) (1.4-6.5) K/uL Lymph # (Auto) (1.2-3.4) K/uL [place] # (Auto) (0.11-0.59) K/uL Eos # (Auto) (0-0.5) K/uL Baso # (Auto) (0-0.2) K/uL Immature Gran # (Auto) (0.00-0.02) K/uL Sodium (136-145) mmol/L Potassium (3.5-5.1) mmol/L Chloride (98-107) mmol/L Carbon Dioxide (21-32) mmol/L Anion Gap (3-11) BUN (6-23) mg/dl Creatinine (0.6-1.2) mg/dl Est Cr Clr Drug Dosing Est GFR ( Amer) ml/min Est GFR (Non-Af Amer) ml/min BUN/Creatinine Ratio (10-20) Glucose (70-99(Fasting)) mg/dl Osmolality (280-300) mOsm/kg Calcium (8.5-10.1) mg/dl Magnesium (1.7-2.4) mg/dl Total Bilirubin (0.2-1.0) mg/dl AST (13-39) U/L ALT (7-52) U/L Alkaline Phosphatase (34-104) U/L Total Protein (6.0-8.3) gm/dl Albumin (3.4-5.0) gm/dl Globulin (2.5-4.0) gm/dl Albumin/Globulin Ratio (0.9-2) Lipase (11-82) U/L Urine Color Yellow Urine Appearance Clear (Clear) Urine pH 7.0 (4.5-7.5) Ur Specific [place] 1.014 (1.000-1.030) Urine Protein Negative (Negative) Urine Glucose (UA) Negative (Negative) Urine Ketones 4+ H (Negative) Urine Blood 3+ H (Negative) Urine Nitrite Negative (Negative) Urine Bilirubin Negative (Negative) Urine Urobilinogen Negative (Negative) Ur Leukocyte Esterase Negative (Negative) Urine WBC (Auto) 1-5 (0-5) /hpf Urine RBC (Auto) >30 H (0-4) /hpf U Hyaline Cast (Auto) 1-5 (0-5) /lpf U Epithel Cells (Auto) 20-30 H (0-5) /lpf Urine Bacteria (Auto) Negative (Negative) Urine Osmolality 475 L (500-800) mOsm/kg Ur Random Sodium mmol/L POC Ur Test (NEG) Urine Opiates Screen Neg (Neg) Ur Methadone, Qual Neg (Neg) Urine Barbiturates Neg (Neg) Ur Phencyclidine (PCP) Neg (Neg) U Amphetamin/Meth Scrn Neg (Neg) MDMA (Ecstasy) Screen Neg (Neg) U Benzodiazepines Scrn Neg (Neg) Ur Cocaine Metabolite Neg (Neg) U Marijuana (THC) Screen Neg (Neg) SARS-CoV-2, RNA, NAAT (NEGATIVE) 05/26/21 Range/Units 06:09 WBC 7.60 (4.8-10.8) K/uL RBC 4.00 L (4.2-5.4) M/uL Hgb 10.9 L (12.0-16.0) g/dL Hct 32.3 L (37-47) % MCV 80.8 (80-100) fL MCH 27.3 (25-34) pg MCHC 33.7 (32-36) g/dL RDW Std Deviation 36.8 (36.4-46.3) fL RDW Coeff of Mary 12.6 (11.5-14.5) % Plt Count 357 (130-400) K/uL MPV 9.1 (7.4-10.4) fL Immature Gran % (Auto) 0.1 % Neut % (Auto) 74.8 % Lymph % (Auto) 12.8 % [place] % (Auto) 8.0 % Eos % (Auto) 4.2 % Baso % (Auto) 0.1 % Neut # (Auto) 5.68 (1.4-6.5) K/uL Lymph # (Auto) 0.97 L (1.2-3.4) K/uL [place] # (Auto) 0.61 H (0.11-0.59) K/uL Eos # (Auto) 0.32 (0-0.5) K/uL Baso # (Auto) 0.01 (0-0.2) K/uL Immature Gran # (Auto) 0.01 (0.00-0.02) K/uL Sodium (136-145) mmol/L Potassium (3.5-5.1) mmol/L Chloride (98-107) mmol/L Carbon Dioxide (21-32) mmol/L Anion Gap (3-11) BUN (6-23) mg/dl Creatinine (0.6-1.2) mg/dl Est Cr Clr Drug Dosing Est GFR ( Amer) ml/min Est GFR (Non-Af Amer) ml/min BUN/Creatinine Ratio (10-20) Glucose (70-99(Fasting)) mg/dl Osmolality (280-300) mOsm/kg Calcium (8.5-10.1) mg/dl Magnesium (1.7-2.4) mg/dl Total Bilirubin (0.2-1.0) mg/dl AST (13-39) U/L ALT (7-52) U/L Alkaline Phosphatase (34-104) U/L Total Protein (6.0-8.3) gm/dl Albumin (3.4-5.0) gm/dl Globulin (2.5-4.0) gm/dl Albumin/Globulin Ratio (0.9-2) Lipase (11-82) U/L Urine Color Urine Appearance (Clear) Urine pH (4.5-7.5) Ur Specific [place] (1.000-1.030) Urine Protein (Negative) Urine Glucose (UA) (Negative) Urine Ketones (Negative) Urine Blood (Negative) Urine Nitrite (Negative) Urine Bilirubin (Negative) Urine Urobilinogen (Negative) Ur Leukocyte Esterase (Negative) Urine WBC (Auto) (0-5) /hpf Urine RBC (Auto) (0-4) /hpf U Hyaline Cast (Auto) (0-5) /lpf U Epithel Cells (Auto) (0-5) /lpf Urine Bacteria (Auto) (Negative) Urine Osmolality (500-800) mOsm/kg Ur Random Sodium mmol/L POC Ur Test (NEG) Urine Opiates Screen (Neg) Ur Methadone, Qual (Neg) Urine Barbiturates (Neg) Ur Phencyclidine (PCP) (Neg) U Amphetamin/Meth Scrn (Neg) MDMA (Ecstasy) Screen (Neg) U Benzodiazepines Scrn (Neg) Ur Cocaine Metabolite (Neg) U Marijuana (THC) Screen (Neg) SARS-CoV-2, RNA, NAAT (NEGATIVE)
--- NOTE | 2021-05-26 11:34 | CT Scan Report ---
CT head/brain wo con CLINICAL HISTORY: 36 years-old Female with pancreatic ca. Acutely altered mental status TECHNIQUE: Multiple axial CT images of the head were obtained without contrast. A dose lowering tech nique was utilized adhering to the principles of ALARA. COMPARISON: None. FINDINGS: No acute intracranial hemorrhage, midline shift, intracranial mass, hydrocephalus, territorial ischem ia or abnormal extra-axial collection. The calvarium is intact. The paranasal sinuses, mastoid air cells, and middle ear cavities are clear . IMPRESSION: No acute intracranial abnormality. ACT 112: Negative or not required by law. The above report was generated using voice recognition software. It may contain grammatical, syntax o r spelling errors. Electronically signed by: Adonay Green M.D. 05/26/2021 11:31 AM
--- NOTE | 2021-05-26 11:35 | CT Scan Report ---
CT OF THE THORACIC SPINE CLINICAL HISTORY: Back pain. Possible pancreatic cancer. COMPARISON STUDY: No previous studies for comparison. TECHNIQUE: Helical axial images of the thoracic spine were obtained. Sagittal and coronal reconstru ctions were viewed. Automated exposure control was utilized for the study. A dose lowering techniqu e was utilized adhering to the principles of ALARA. FINDINGS: Alignment of the thoracic spine is anatomic. Minimal endplate osteophytosis is present. Salena tebral body heights are maintained. No fracture is present. No lesion is identified within the thorac ic spine by CT. Central canal and neural foramen are suboptimally assessed by CT but appear patent. P aravertebral soft tissues are unremarkable. Numerous small irregular nodules are noted within visuali zed portions of the lungs, some of which have a tree-in-bud configuration. These include a 5 mm the l eft lower lobe nodule. These are better depicted on the chest CT which will be reported separately. P jaun-aortic lymphadenopathy and the known pancreatic mass are partially visualized in this exam. This is better depicted on the abdominal CT performed earlier today. Excreted contrast within the collecti ng systems is present. IMPRESSION: 1. No abnormality of the thoracic spine. No acute fracture. No lesions identified by CT. 2. Numerous ill-defined nodules throughout the lungs, some of which have a tree-in-bud configuration. These are better depicted on the chest CT which will be reported separately. These could be infectio us or inflammatory. However, metastatic disease is within the differential given the known pancreatic lesion. ACT 112: Negative or not required by law. Electronically signed by: Issa Mosley M.D. 05/26/2021 11:34 AM
--- NOTE | 2021-05-26 11:41 | CT Scan Report ---
CT chest diagnostic wo con CT DOSE: 1144.28 mGy.cm CLINICAL HISTORY: 36 years-old Female with pancreatic ca. Acute shortness of breath. Pancreatic carc inoma TECHNIQUE: Multiaxial CT images of the chest were performed without contrast. A dose lowering techni que was utilized adhering to the principles of ALARA. COMPARISON: CT abdomen and pelvis of same day FINDINGS: Normal thyroid. There are a few subcarinal and mediastinal lymph nodes which measures withi n the upper limits of normal at 9 mm. No pneumothorax, pleural effusion or overt pulmonary edema. Pat tomy multifocal multisegmental and multilobar distribution of subcentimeter irregular groundglass and nodular consolidative opacities with mild associated bibasilar mucous plugging. Associated tree-in-bu d nodules. Pancreatic mass with upper abdominal lymphatic and hepatic metastasis. Wall thickening involving the proximal lesser curvature of the stomach is again noted. Residual contrast within the right renal col lecting system. Unremarkable soft tissues. No acute fracture or destructive bone lesion. IMPRESSION: 1. Patchy multilobar multifocal distribution of groundglass and irregular consolidative opacities are noted with tree-in-bud nodules. Findings may be infectious or inflammatory, however follow-up is nee ded to exclude pulmonary metastasis. 2. Mild bibasilar mucous plugging. 3. Pancreatic mass with possible gastric invasion, hepatic and lymphatic metastasis are better charac terized on the CT abdomen and pelvis study of same day. ACT 112: Negative or not required by law. Electronically signed by: Adonay Green M.D. 05/26/2021 11:38 AM
--- NOTE | 2021-05-26 11:42 | CT Scan Report ---
CT lumbar spine wo con CLINICAL HISTORY: back pain TECHNIQUE: Multidetector row helical CT of the lumbar spine was performed without administration of i ntravenous contrast. Coronal and sagittal reformations were obtained. Automated dose lowering techniq ues and/or adjustment according to patient size were utilized for this exam. Comparison: None available at the time of this dictation. FINDINGS: For counting purposes, the last complete intervertebral disc space is considered L5-S1. No acute fractures are identified. Vertebral body heights and disk spaces are well maintained. A bone island is incidentally noted in the L2 vertebral body. Vertebral body alignment is within normal valdez its. Incidentally noted is greater urinary excretion from the right kidney and left which may be an a rtifact timing. IMPRESSION: No evidence of acute bony injury. ACT 112: Negative or not required by law. Electronically signed by: Miguel Lindsay M.D. 05/26/2021 11:41 AM
[2021-05-26] MEDS ORDERED: POLYETHYLENE (MIRALAX) 17 GM PACK PO PRN (12:48)
[2021-05-26] MEDS ORDERED: ALUMINUM/MAGNESIUM SUSP 30 ML UDC PO PRN (12:48)
[2021-05-26] MEDS ORDERED: MAGNESIUM HYDROXIDE SUSP 30 ML UDC PO PRN (12:48)
[2021-05-26] MEDS ORDERED: ONDANSETRON INJ 2 MG/ML 2 ML VIAL IV PRN (12:48)
[2021-05-26 13:00] LABS: Anion Gap 7 (3-11); BUN Creatinine Ratio 5.6 (10-20); Blood Urea Nitrogen 2 mg/dl (6-23); Carbon Dioxide 26 mmol/L (21-32); Chloride 92 mmol/L (98-107); Est GFR (African American) > 150.0 ml/min; Est GFR (Non-African American) 137.8 ml/min; Glucose 103 mg/dl (70-99(Fasting)); Potassium 3.3 mmol/L (3.5-5.1); Sodium 125 mmol/L (136-145)
[2021-05-26] MEDS ORDERED: POTASSIUM CHLORIDE CRTAB 20 MEQ TABCR PO ONE (15:00)
[2021-05-26] MEDS: MAGNESIUM SULFATE / D5W 1 GM/100 ML BAG IV SCH ×2 (15:20→17:20)
[2021-05-26] MEDS: PANTOprazole 40 MG TAB PO SCH ×2 (15:21→21:36)
[2021-05-26] MEDS: POLYETHYLENE (MIRALAX) 17 GM PACK PO SCH (16:10)
--- NOTE | 2021-05-26 17:37 | Anesthesiology Consultation ---
Date of Service May 26, 2021 Assessment & Plan (1) Encounter for pre-operative examination: Chart Review Chart Review: Pending: Refer to Additional Notes / Consult section (pending improvement of hyponatremia) and Patient NOT seen in Pre Admission Testing Consults Requested none History Surgery Operation Date: 05/27/21 07:00 Proposed Procedures p Endoscopic Ultrasonography To - Ruma Solomon MD Height/Weight Height: 5 ft 2.99 in Weight: 56.4 kg Allergies Allergy/AdvReac Type Severity Reaction Status Date / Time No Known Allergies Allergy Unverified 05/26/21 08:02 Medications Home Medications Medication Instructions Recorded Confirmed Last Taken bisacodyl 5 mg tablet,delayed 5 mg PO UD 05/26/21 05/26/21 05/26/21 00:00 release (Dulcolax (bisacodyl)) 15 mg cyclobenzaprine 5 mg tablet 5 mg PO BID PRN 05/26/21 05/26/21 05/24/21 levocetirizine 5 mg tablet 5 mg PO BID 05/26/21 05/26/21 05/25/21 multivitamin 1 tab PO QAM 05/26/21 05/26/21 05/25/21 Active Medications Generic Name Dose Route Start Last Admin Trade Name Freq PRN Reason Stop Dose Admin Potassium Chloride/Sodium Chloride 20 meq in 1,000 mls @ 100 mls/hr 05/26/21 12:48 05/26/21 16:55 Normal Saline W/20 Meq Kcl IV 06/25/21 12:47 100 mls/hr .Q10H KYLAH Administration Protocol Pantoprazole Sodium 40 mg 05/26/21 12:48 05/26/21 15:21 Pantoprazole 40 Mg Tab PO 06/25/21 12:47 40 mg BID KYLAH Administration Polyethylene Glycol 17 gm 05/26/21 12:48 05/26/21 16:10 Polyethylene (Miralax) 17 Gm Pack PO 06/25/21 12:47 17 gm DAILY KYLAH Administration Past Medical History Medical History Anemia Hypokalemia Hyponatremia Metastasis from pancreatic cancer Past Family History Family History Uncle Gastric cancer Grandmother (Maternal) Gastric cancer Past Surgical History Surgical History No pertinent past surgical history Social History Smoking Status: Former smoker tobacco type: cigarettes Hx Alcohol Use: Yes alcohol intake frequency: holidays/special occasions only Hx Substance Use: No Physical Exam Vital Signs Last Vital Signs Temp 36.8 C 05/26/21 14:30 Pulse 87 05/26/21 14:50 Resp 16 05/26/21 14:30 BP 122/76 05/26/21 14:30 Pulse Ox 99 05/26/21 14:30 Testing Laboratory Results 05/26/21 06:09 05/26/21 12:12 Urine Color Yellow 05/26/21 06:12 Urine Appearance Clear (Clear) 05/26/21 06:12 Urine pH 7.0 (4.5-7.5) 05/26/21 06:12 Ur Specific [place] 1.014 (1.000-1.030) 05/26/21 06:12 Urine Protein Negative (Negative) 05/26/21 06:12 Urine Glucose (UA) Negative (Negative) 05/26/21 06:12 Urine Ketones 4+ (Negative) H 05/26/21 06:12 Urine Nitrite Negative (Negative) 05/26/21 06:12 Ur Leukocyte Esterase Negative (Negative) 05/26/21 06:12 Urine WBC (Auto) 1-5 /hpf (0-5) 05/26/21 06:12 Urine RBC (Auto) >30 /hpf (0-4) H 05/26/21 06:12 U Hyaline Cast (Auto) 1-5 /lpf (0-5) 05/26/21 06:12 U Epithel Cells (Auto) 20-30 /lpf (0-5) H 05/26/21 06:12 Urine Bacteria (Auto) Negative (Negative) 05/26/21 06:12 05/26/21 06:15 POC Ur Test NEG Other Testing CT chest diagnostic wo con CT DOSE: 1144.28 mGy.cm CLINICAL HISTORY: 36 years-old Female with pancreatic ca. Acute shortness of breath. Pancreatic carcinoma TECHNIQUE: Multiaxial CT images of the chest were performed without contrast. A dose lowering technique was utilized adhering to the principles of ALARA. COMPARISON: CT abdomen and pelvis of same day FINDINGS: Normal thyroid. There are a few subcarinal and mediastinal lymph nodes which measures within the upper limits of normal at 9 mm. No pneumothorax, pleural effusion or overt pulmonary edema. Patchy multifocal multisegmental and multilobar distribution of subcentimeter irregular groundglass and nodular consolidative opacities with mild associated bibasilar mucous plugging. Associated tree-in-bud nodules. Pancreatic mass with upper abdominal lymphatic and hepatic metastasis. Wall thickening involving the proximal lesser curvature of the stomach is again noted. Residual contrast within the right renal collecting system. Unremarkable soft tissues. No acute fracture or destructive bone lesion. IMPRESSION: 1. Patchy multilobar multifocal distribution of groundglass and irregular consolidative opacities are noted with tree-in-bud nodules. Findings may be infectious or inflammatory, however follow-up is needed to exclude pulmonary metastasis. 2. Mild bibasilar mucous plugging. 3. Pancreatic mass with possible gastric invasion, hepatic and lymphatic metastasis are better characterized on the CT abdomen and pelvis study of same day. ACT 112: Negative or not required by law. Electronically signed by: Adonay Green M.D. 05/26/2021 11:38 AM Dictated:05/26/21 [id number]
[2021-05-26 18:14] LABS: Appearance Urine Clear (Clear); Bilirubin Urine Negative (Negative); Blood Urine 1+ (Negative); Color Urine Yellow; Glucose Urine UA Negative (Negative); Ketones Urine 1+ (Negative); Leukocyte Esterase Urine Negative (Negative); Nitrite Urine Negative (Negative); Protein Urine Negative (Negative); Specific Gravity Urine 1.002 (1.000-1.030); Urobilinogen Urine Negative (Negative)
[2021-05-26 18:16] LABS: Calcium 8.6 mg/dl (8.5-10.1); Creatinine Clr Calc Pharmacy 127.4 ml/min; Est GFR (African American) 143.3 ml/min; Est GFR (Non-African American) 123.6 ml/min; Potassium 3.1 mmol/L (3.5-5.1)
[2021-05-26 18:28] LABS: Bacteria Urine Automated Negative (Negative); RBC Urine Automated 0-4 /hpf (0-4)
[2021-05-26] MEDS: DOCUSATE SODIUM/SENNA 50/8.6MG TAB PO SCH (20:55)
[2021-05-26] MEDS: MoRPHine SULFATE 2 MG/ML CARP IV PRN (23:37)
[2021-05-27 01:25] LABS: Anion Gap 7 (3-11); Blood Urea Nitrogen 3 mg/dl (6-23); Calcium 8.5 mg/dl (8.5-10.1); Carbon Dioxide 23 mmol/L (21-32); Chloride 105 mmol/L (98-107); Creatinine Clr Calc Pharmacy 148.1 ml/min; Est GFR (African American) > 150.0 ml/min; Est GFR (Non-African American) 129.9 ml/min; Glucose 102 mg/dl (70-99(Fasting)); Potassium 3.8 mmol/L (3.5-5.1); Sodium 135 mmol/L (136-145)
[2021-05-27] MEDS: MoRPHine SULFATE 2 MG/ML CARP IV PRN ×4 (04:59→22:28)
[2021-05-27 06:58] LABS: Basophils # (auto) 0.02 K/uL (0-0.2); Basophils % (auto) 0.3 %; Eosinophils # (auto) 0.65 K/uL (0-0.5); Eosinophils % (auto) 11.1 %; Hematocrit (blood only) 33.9 % (37-47); Hemoglobin 11.2 g/dL (12.0-16.0); Immature Granulocytes # (auto) 0.01 K/uL (0.00-0.02); Immature Granulocytes % (auto) 0.2 %; Lymphocytes # (auto) 0.96 K/uL (1.2-3.4); Lymphocytes % (auto) 16.4 %; Mean Corpuscular Hemoglobin 27.1 pg (25-34); Mean Corpuscular Volume 82.1 fL (80-100); Mean Platelet Volume 9.1 fL (7.4-10.4); Monocytes # (auto) 0.58 K/uL (0.11-0.59); Monocytes % (auto) 9.9 %; Neutrophils # (auto) 3.63 K/uL (1.4-6.5); Neutrophils % (auto) 62.1 %; Platelet Count 347 K/uL (130-400); RDW Coefficient of Variation 13.2 % (11.5-14.5); RDW Standard Deviation 39.2 fL (36.4-46.3); Red Blood Count 4.13 M/uL (4.2-5.4); White Blood Count 5.85 K/uL (4.8-10.8)
[2021-05-27 07:22] LABS: BUN Creatinine Ratio 6.1 (10-20); Calcium 8.5 mg/dl (8.5-10.1); Est GFR (African American) 144.3 ml/min; Est GFR (Non-African American) 124.5 ml/min; Potassium 3.8 mmol/L (3.5-5.1)
[2021-05-27 07:23] LABS: Albumin Globulin Ratio 1.4 (0.9-2); Albumin Level 3.9 gm/dl (3.4-5.0); BUN Creatinine Ratio 6.5 (10-20); Bilirubin,Total 0.4 mg/dl (0.2-1.0); Calcium 8.6 mg/dl (8.5-10.1); Creatinine Clr Calc Pharmacy 138.5 ml/min; Est GFR (African American) 147.3 ml/min; Est GFR (Non-African American) 127.1 ml/min; Globulin 2.7 gm/dl (2.5-4.0); Magnesium 2.2 mg/dl (1.7-2.4); Potassium 3.7 mmol/L (3.5-5.1); Total Protein 6.6 gm/dl (6.0-8.3)
[2021-05-27 07:30] LABS: INR 1.1 (0.9-1.1); Partial Thromboplastin Ratio 1.1; Partial Thromboplastin Time 29.3 Seconds (21.0-31.0); Prothrombin Time 11.2 Seconds (9.0-12.0)
--- NOTE | 2021-05-27 09:02 | Gastroenterology Progress Note ---
Date of Service May 27, 2021 Assessment & Plan (1) Abdominal pain: Plan: 36 year old female presenting with back pain x 1 month, upper abd pain, decreased appetite, nausea/vomiting x 1-2 weeks with 5kg weight loss, imaging concerning for a large infiltrative pancreatic mass w/ vascular involvement and concern for hepatic metastasis. There is also some thickening of the gastric lining. NPO for EGD/EUS today PO PPI BID Trend HGB Monitor output Transfuse PRN HGB < 8 Analgesia PRN Antiemetics PRN Agree with oncology consultation Thank you for allowing us to participate in the care of this patient. Please call with any acute changes, questions or concerns. Please see addendum below with additional recommendation from my supervising physician. Admission and Anticipated Discharge Date Admission Date: May 26, 2021 Supervising Physician Co-Signing Physician Notes I performed a history and physical examination of the patient today, including specifically on physical exam - soft abdomen. I have discussed the patient's management with the advanced practitioner. Please refer to the nurse practitioner's note for the documented findings and plan of care. EUS Subjective Project Finance Analyst was used. Pt was seen and evaluated, chart reviewed. Pain improved No nausea, vomiting. No change in bowel habits Remains NPO for EGD/EUS today. Review of Systems Review of Systems: All systems reviewed & are unremarkable except as noted in HPI & below Physical Exam Constitutional: WD/WN, vitals as above Eyes: PERRL Neck: trachea midline, no thyromegaly Respiratory: normal respiratory effort, lungs clear to auscultation Cardiovascular: Rate/Rhythm: regular rate and regular rhythm Gastrointestinal (Abdomen): Inspection/Auscultation: abdomen normal to inspection and normal bowel sounds Percussion/Palpation: abdomen soft; abdomen nontender, no guarding, abdomen not rigid and no abdominal mass Skin: no rashes, warm and dry Results & Data ([facility]) Vital Signs (Past 12 Hours) Vital Signs Temp Pulse Resp BP Pulse Ox 05/27/21 08:54 36.9 C 85 16 111/75 97 05/27/21 02:53 36.6 C 95 H 18 109/73 98 05/26/21 23:04 36.8 C 75 17 129/81 97 Laboratory Results 05/27/21 05/27/21 05/27/21 Range/Units 05:53 05:53 05:53 WBC (4.8-10.8) K/uL RBC (4.2-5.4) M/uL Hgb (12.0-16.0) g/dL Hct (37-47) % MCV (80-100) fL MCH (25-34) pg MCHC (32-36) g/dL RDW Std Deviation (36.4-46.3) fL RDW Coeff of Mary (11.5-14.5) % Plt Count (130-400) K/uL MPV (7.4-10.4) fL Immature Gran % (Auto) % Neut % (Auto) % Lymph % (Auto) % Barbour % (Auto) % Eos % (Auto) % Baso % (Auto) % Neut # (Auto) (1.4-6.5) K/uL Lymph # (Auto) (1.2-3.4) K/uL Barbour # (Auto) (0.11-0.59) K/uL Eos # (Auto) (0-0.5) K/uL Baso # (Auto) (0-0.2) K/uL Immature Gran # (Auto) (0.00-0.02) K/uL PT 11.2 (9.0-12.0) Seconds INR 1.1 (0.9-1.1) APTT 29.3 (21.0-31.0) Seconds PTT Ratio 1.1 Sodium 136 136 (136-145) mmol/L Potassium 3.8 3.7 (3.5-5.1) mmol/L Chloride 106 106 (98-107) mmol/L Carbon Dioxide 25 25 (21-32) mmol/L Anion Gap 5 5 (3-11) BUN 3 L 3 L (6-23) mg/dl Creatinine 0.49 L 0.46 L (0.6-1.2) mg/dl Est Cr Clr Drug Dosing 130.0 138.5 Est GFR ( Amer) 144.3 147.3 ml/min Est GFR (Non-Af Amer) 124.5 127.1 ml/min BUN/Creatinine Ratio 6.1 L 6.5 L (10-20) Glucose 100 H 99 (70-99(Fasting)) mg/dl Osmolality (280-300) mOsm/kg Calcium 8.5 8.6 (8.5-10.1) mg/dl Magnesium 2.2 (1.7-2.4) mg/dl Total Bilirubin 0.4 (0.2-1.0) mg/dl AST 13 (13-39) U/L ALT 11 (7-52) U/L Alkaline Phosphatase 63 (34-104) U/L Total Protein 6.6 (6.0-8.3) gm/dl Albumin 3.9 (3.4-5.0) gm/dl Globulin 2.7 (2.5-4.0) gm/dl Albumin/Globulin Ratio 1.4 (0.9-2) Procalcitonin (0-0.5) ng/ml TSH (0.300-4.500) uIu/ml Urine Color Urine Appearance (Clear) Urine pH (4.5-7.5) Ur Specific Foster (1.000-1.030) Urine Protein (Negative) Urine Glucose (UA) (Negative) Urine Ketones (Negative) Urine Blood (Negative) Urine Nitrite (Negative) Urine Bilirubin (Negative) Urine Urobilinogen (Negative) Ur Leukocyte Esterase (Negative) Urine WBC (Auto) (0-5) /hpf Urine RBC (Auto) (0-4) /hpf U Hyaline Cast (Auto) (0-5) /lpf U Epithel Cells (Auto) (0-5) /lpf Urine Bacteria (Auto) (Negative) Urine Osmolality (500-800) mOsm/kg Ur Random Sodium mmol/L SARS-CoV-2, RNA, NAAT (NEGATIVE) 05/27/21 05/27/21 05/26/21 Range/Units 05:53 00:33 17:40 WBC 5.85 (4.8-10.8) K/uL RBC 4.13 L (4.2-5.4) M/uL Hgb 11.2 L (12.0-16.0) g/dL Hct 33.9 L (37-47) % MCV 82.1 (80-100) fL MCH 27.1 (25-34) pg MCHC 33.0 (32-36) g/dL RDW Std Deviation 39.2 (36.4-46.3) fL RDW Coeff of Mary 13.2 (11.5-14.5) % Plt Count 347 (130-400) K/uL MPV 9.1 (7.4-10.4) fL Immature Gran % (Auto) 0.2 % Neut % (Auto) 62.1 % Lymph % (Auto) 16.4 % Barbour % (Auto) 9.9 % Eos % (Auto) 11.1 % Baso % (Auto) 0.3 % Neut # (Auto) 3.63 (1.4-6.5) K/uL Lymph # (Auto) 0.96 L (1.2-3.4) K/uL Barbour # (Auto) 0.58 (0.11-0.59) K/uL Eos # (Auto) 0.65 H (0-0.5) K/uL Baso # (Auto) 0.02 (0-0.2) K/uL Immature Gran # (Auto) 0.01 (0.00-0.02) K/uL PT (9.0-12.0) Seconds INR (0.9-1.1) APTT (21.0-31.0) Seconds PTT Ratio Sodium 135 L 131 L (136-145) mmol/L Potassium 3.8 D 3.1 L (3.5-5.1) mmol/L Chloride 105 100 (98-107) mmol/L Carbon Dioxide 23 24 (21-32) mmol/L Anion Gap 7 7 (3-11) BUN 3 L 2 L (6-23) mg/dl Creatinine 0.43 L 0.50 L (0.6-1.2) mg/dl Est Cr Clr Drug Dosing 148.1 127.4 Est GFR ( Amer) > 150.0 143.3 ml/min Est GFR (Non-Af Amer) 129.9 123.6 ml/min BUN/Creatinine Ratio 7.0 L 4.0 L (10-20) Glucose 102 H 266 H (70-99(Fasting)) mg/dl Osmolality (280-300) mOsm/kg Calcium 8.5 8.6 (8.5-10.1) mg/dl Magnesium (1.7-2.4) mg/dl Total Bilirubin (0.2-1.0) mg/dl AST (13-39) U/L ALT (7-52) U/L Alkaline Phosphatase (34-104) U/L Total Protein (6.0-8.3) gm/dl Albumin (3.4-5.0) gm/dl Globulin (2.5-4.0) gm/dl Albumin/Globulin Ratio (0.9-2) Procalcitonin (0-0.5) ng/ml TSH (0.300-4.500) uIu/ml Urine Color Urine Appearance (Clear) Urine pH (4.5-7.5) Ur Specific Foster (1.000-1.030) Urine Protein (Negative) Urine Glucose (UA) (Negative) Urine Ketones (Negative) Urine Blood (Negative) Urine Nitrite (Negative) Urine Bilirubin (Negative) Urine Urobilinogen (Negative) Ur Leukocyte Esterase (Negative) Urine WBC (Auto) (0-5) /hpf Urine RBC (Auto) (0-4) /hpf U Hyaline Cast (Auto) (0-5) /lpf U Epithel Cells (Auto) (0-5) /lpf Urine Bacteria (Auto) (Negative) Urine Osmolality (500-800) mOsm/kg Ur Random Sodium mmol/L SARS-CoV-2, RNA, NAAT (NEGATIVE) 05/26/21 05/26/21 05/26/21 Range/Units 16:30 12:12 12:12 WBC (4.8-10.8) K/uL RBC (4.2-5.4) M/uL Hgb (12.0-16.0) g/dL Hct (37-47) % MCV (80-100) fL MCH (25-34) pg MCHC (32-36) g/dL RDW Std Deviation (36.4-46.3) fL RDW Coeff of Mary (11.5-14.5) % Plt Count (130-400) K/uL MPV (7.4-10.4) fL Immature Gran % (Auto) % Neut % (Auto) % Lymph % (Auto) % Barbour % (Auto) % Eos % (Auto) % Baso % (Auto) % Neut # (Auto) (1.4-6.5) K/uL Lymph # (Auto) (1.2-3.4) K/uL Barbour # (Auto) (0.11-0.59) K/uL Eos # (Auto) (0-0.5) K/uL Baso # (Auto) (0-0.2) K/uL Immature Gran # (Auto) (0.00-0.02) K/uL PT (9.0-12.0) Seconds INR (0.9-1.1) APTT (21.0-31.0) Seconds PTT Ratio Sodium (136-145) mmol/L Potassium (3.5-5.1) mmol/L Chloride (98-107) mmol/L Carbon Dioxide (21-32) mmol/L Anion Gap (3-11) BUN (6-23) mg/dl Creatinine (0.6-1.2) mg/dl Est Cr Clr Drug Dosing Est GFR ( Amer) ml/min Est GFR (Non-Af Amer) ml/min BUN/Creatinine Ratio (10-20) Glucose (70-99(Fasting)) mg/dl Osmolality (280-300) mOsm/kg Calcium (8.5-10.1) mg/dl Magnesium (1.7-2.4) mg/dl Total Bilirubin (0.2-1.0) mg/dl AST (13-39) U/L ALT (7-52) U/L Alkaline Phosphatase (34-104) U/L Total Protein (6.0-8.3) gm/dl Albumin (3.4-5.0) gm/dl Globulin (2.5-4.0) gm/dl Albumin/Globulin Ratio (0.9-2) Procalcitonin < 0.05 (0-0.5) ng/ml TSH 2.159 (0.300-4.500) uIu/ml Urine Color Yellow Urine Appearance Clear (Clear) Urine pH 7.0 (4.5-7.5) Ur Specific Foster 1.002 (1.000-1.030) Urine Protein Negative (Negative) Urine Glucose (UA) Negative (Negative) Urine Ketones 1+ H (Negative) Urine Blood 1+ H (Negative) Urine Nitrite Negative (Negative) Urine Bilirubin Negative (Negative) Urine Urobilinogen Negative (Negative) Ur Leukocyte Esterase Negative (Negative) Urine WBC (Auto) 1-5 (0-5) /hpf Urine RBC (Auto) 0-4 (0-4) /hpf U Hyaline Cast (Auto) 1-5 (0-5) /lpf U Epithel Cells (Auto) 5-10 H (0-5) /lpf Urine Bacteria (Auto) Negative (Negative) Urine Osmolality (500-800) mOsm/kg Ur Random Sodium mmol/L SARS-CoV-2, RNA, NAAT (NEGATIVE) 05/26/21 05/26/21 05/26/21 Range/Units 12:12 09:46 09:46 WBC (4.8-10.8) K/uL RBC (4.2-5.4) M/uL Hgb (12.0-16.0) g/dL Hct (37-47) % MCV (80-100) fL MCH (25-34) pg MCHC (32-36) g/dL RDW Std Deviation (36.4-46.3) fL RDW Coeff of Mary (11.5-14.5) % Plt Count (130-400) K/uL MPV (7.4-10.4) fL Immature Gran % (Auto) % Neut % (Auto) % Lymph % (Auto) % Barbour % (Auto) % Eos % (Auto) % Baso % (Auto) % Neut # (Auto) (1.4-6.5) K/uL Lymph # (Auto) (1.2-3.4) K/uL Barbour # (Auto) (0.11-0.59) K/uL Eos # (Auto) (0-0.5) K/uL Baso # (Auto) (0-0.2) K/uL Immature Gran # (Auto) (0.00-0.02) K/uL PT (9.0-12.0) Seconds INR (0.9-1.1) APTT (21.0-31.0) Seconds PTT Ratio Sodium 125 L (136-145) mmol/L Potassium 3.3 L D (3.5-5.1) mmol/L Chloride 92 L (98-107) mmol/L Carbon Dioxide 26 (21-32) mmol/L Anion Gap 7 (3-11) BUN 2 L (6-23) mg/dl Creatinine 0.36 L (0.6-1.2) mg/dl Est Cr Clr Drug Dosing Not Reportable Est GFR ( Amer) > 150.0 ml/min Est GFR (Non-Af Amer) 137.8 ml/min BUN/Creatinine Ratio 5.6 L (10-20) Glucose 103 H (70-99(Fasting)) mg/dl Osmolality 261 L (280-300) mOsm/kg Calcium 8.0 L (8.5-10.1) mg/dl Magnesium 1.5 L (1.7-2.4) mg/dl Total Bilirubin (0.2-1.0) mg/dl AST (13-39) U/L ALT (7-52) U/L Alkaline Phosphatase (34-104) U/L Total Protein (6.0-8.3) gm/dl Albumin (3.4-5.0) gm/dl Globulin (2.5-4.0) gm/dl Albumin/Globulin Ratio (0.9-2) Procalcitonin (0-0.5) ng/ml TSH (0.300-4.500) uIu/ml Urine Color Urine Appearance (Clear) Urine pH (4.5-7.5) Ur Specific Foster (1.000-1.030) Urine Protein (Negative) Urine Glucose (UA) (Negative) Urine Ketones (Negative) Urine Blood (Negative) Urine Nitrite (Negative) Urine Bilirubin (Negative) Urine Urobilinogen (Negative) Ur Leukocyte Esterase (Negative) Urine WBC (Auto) (0-5) /hpf Urine RBC (Auto) (0-4) /hpf U Hyaline Cast (Auto) (0-5) /lpf U Epithel Cells (Auto) (0-5) /lpf Urine Bacteria (Auto) (Negative) Urine Osmolality (500-800) mOsm/kg Ur Random Sodium mmol/L SARS-CoV-2, RNA, NAAT (NEGATIVE) 05/26/21 05/26/21 05/26/21 Range/Units 09:02 06:12 06:12 WBC (4.8-10.8) K/uL RBC (4.2-5.4) M/uL Hgb (12.0-16.0) g/dL Hct (37-47) % MCV (80-100) fL MCH (25-34) pg MCHC (32-36) g/dL RDW Std Deviation (36.4-46.3) fL RDW Coeff of Mary (11.5-14.5) % Plt Count (130-400) K/uL MPV (7.4-10.4) fL Immature Gran % (Auto) % Neut % (Auto) % Lymph % (Auto) % Barbour % (Auto) % Eos % (Auto) % Baso % (Auto) % Neut # (Auto) (1.4-6.5) K/uL Lymph # (Auto) (1.2-3.4) K/uL Barbour # (Auto) (0.11-0.59) K/uL Eos # (Auto) (0-0.5) K/uL Baso # (Auto) (0-0.2) K/uL Immature Gran # (Auto) (0.00-0.02) K/uL PT (9.0-12.0) Seconds INR (0.9-1.1) APTT (21.0-31.0) Seconds PTT Ratio Sodium (136-145) mmol/L Potassium (3.5-5.1) mmol/L Chloride (98-107) mmol/L Carbon Dioxide (21-32) mmol/L Anion Gap (3-11) BUN (6-23) mg/dl Creatinine (0.6-1.2) mg/dl Est Cr Clr Drug Dosing Est GFR ( Amer) ml/min Est GFR (Non-Af Amer) ml/min BUN/Creatinine Ratio (10-20) Glucose (70-99(Fasting)) mg/dl Osmolality (280-300) mOsm/kg Calcium (8.5-10.1) mg/dl Magnesium (1.7-2.4) mg/dl Total Bilirubin (0.2-1.0) mg/dl AST (13-39) U/L ALT (7-52) U/L Alkaline Phosphatase (34-104) U/L Total Protein (6.0-8.3) gm/dl Albumin (3.4-5.0) gm/dl Globulin (2.5-4.0) gm/dl Albumin/Globulin Ratio (0.9-2) Procalcitonin (0-0.5) ng/ml TSH (0.300-4.500) uIu/ml Urine Color Urine Appearance (Clear) Urine pH (4.5-7.5) Ur Specific Foster (1.000-1.030) Urine Protein (Negative) Urine Glucose (UA) (Negative) Urine Ketones (Negative) Urine Blood (Negative) Urine Nitrite (Negative) Urine Bilirubin (Negative) Urine Urobilinogen (Negative) Ur Leukocyte Esterase (Negative) Urine WBC (Auto) (0-5) /hpf Urine RBC (Auto) (0-4) /hpf U Hyaline Cast (Auto) (0-5) /lpf U Epithel Cells (Auto) (0-5) /lpf Urine Bacteria (Auto) (Negative) Urine Osmolality 475 L (500-800) mOsm/kg Ur Random Sodium 119 mmol/L SARS-CoV-2, RNA, NAAT NEGATIVE (NEGATIVE)
[2021-05-27] MEDS ORDERED: PROPOFOL IV EMULSION 10 MG/ML 20 ML VIAL IV ONE (09:39)
[2021-05-27] MEDS ORDERED: LIDOCAINE 2% 2 ML VIAL/AMP(20MG/ML) INFIL ONE (09:39)
--- NOTE | 2021-05-27 09:43 | History & Physical Bridge Note ---
Date of Service May 27, 2021 History & Physical Bridge Note I have examined the patient, reviewed the History & Physical and in the interval since the performance of the History & Physical I have noted the following changes of clinical significance: no changes noted EUS today Patient was explained in detail regarding risks, benefits, limitations and alternatives of the above endoscopic procedure. Risks of intravenous sedation used for procedure were also explained. Risks include, but not limited to perfor ation, bleeding, infection, respiratory distress, cardiac arrest and . Patient is also aware about the possibility of missed lesion. Patient's questions were answered. The patient verbalized understanding the information and agreed to undergo the procedure.
--- NOTE | 2021-05-27 09:43 | Consultation Report ---
DATE OF SERVICE: 05/26/2021. REASON FOR CONSULTATION: Suspected metastatic pancreatic cancer. HISTORY OF PRESENT ILLNESS: Ms. Lambert is a 36-year-old female of descent, who presented to the Emergency Department earlier today with complaints of lower back pain of about 1 month duration, constipation, nausea, poor appetite and vomiting. On arrival to the ED, CT abdomen and pelvis obtained on 05/26/2021 revealed a large infiltrative pancreatic body mass, suggestive of primary pancreatic adenocarcinoma, resulting in upstream pancreatic ductal dilatation with vascular involvement including occlusion of the splenic vein with encasement of the celiac trunk vessels resulting in narrowing of the splenic artery as well as hepatic metastasis along with multifocal gastrohepatic, periportal, retroperitoneal lymphatic metastasis with lymphatic metastasis encasing the superior mesenteric and renal arteries. There was also evidence of gastric wall thickening suspicious for gastric invasion. CT chest also on 05/26/2021 revealed patchy multilobar multifocal distribution of ground glass and irregular consolidative opacities with tree-in-bud nodules, suspicious for infectious or inflammatory process. CT head on 05/26/2021 revealed no acute intracranial abnormality. MRIs of lumbar and thoracic spine were negative for abnormality or osseous lesions. The patient has a family history of gastric cancer in her maternal uncle and maternal grandmother.Mother also has a history of breast cancer PAST MEDICAL HISTORY: Nonsignificant. PAST SURGICAL HISTORY: None. MEDICATIONS PRIOR TO ADMISSION: Multivitamins, Flexeril and bisacodyl. ALLERGIES: No known drug allergies. SOCIAL HISTORY: Denies smoking, alcohol and illicit drug use. FAMILY HISTORY: Significant for breast cancer in mother, gastric cancer in maternal grandmother and an uncle. REVIEW OF SYSTEMS: CONSTITUTIONAL: Positive for weight loss. No night sweats or fever. CARDIOVASCULAR: Negative for chest pain, palpitations, dizziness, or diaphoresis. RESPIRATORY: Negative for shortness of breath, hemoptysis or cough. GASTROINTESTINAL: Positive for constipation, nausea and vomiting. GENITOURINARY: Negative for urinary frequency, hematuria or dysuria. NEUROLOGIC: Negative for weakness, headaches or dizziness. PHYSICAL EXAMINATION: VITAL SIGNS: Blood pressure 141/64, heart rate of 87, respiratory rate of 18, temperature of 36.5 and oxygen saturation of 97% on room air. CONSTITUTIONAL: Vital signs are stable. EYES: Eyes were without conjunctival erythema or icterus. RESPIRATORY: Lung sounds were generally clear bilaterally. CARDIOVASCULAR: Heart was regular rate and rhythm without significant murmur, gallops, or rubs. GASTROINTESTINAL: No palpable hepatosplenomegaly. ABDOMEN: Soft with normal bowel sounds. LYMPHATIC: Left supraclavicular peripheral lymphadenopathy. EXTREMITIES: Negative for edema. IMAGING STUDIES: CT abdomen and pelvis on 05/26/2021, impression: 1. Large infiltrative pancreatic body mass, suggestive of primary pancreatic adenocarcinoma results in upstream pancreatic ductal dilatation. Vascular involvement includes occlusion of the splenic vein with encasement of the celiac trunk vessels resulting in narrowing of the splenic artery. 2. Hepatic metastases are noted along with multifocal gastrohepatic, periportal and retroperitoneal lymphatic metastasis. Lymphatic metastasis encases the superior mesenteric and renal arteries. 3. There is wall thickening with adjacent inflammatory stranding involving the greater curvature of the proximal stomach, suspicious for gastric invasion. 4. Periportal edema without evidence of biliary obstruction. 5. Moderate fecal retention. CT chest on 05/26/2021, impression: 1. Patchy multilobar multifocal distribution of ground glass and irregular consolidative opacities are noted in tree-in-bud nodules. Findings may be infectious or inflammatory. However, followup is needed to exclude pulmonary metastasis. 2. Mild bibasilar mucus plugging. 3. Pancreatic mass with possible gastric invasion, hepatic and lymphatic metastases are better characterized on the CT abdomen and pelvis study of same day. LABORATORY DATA: Significant for anemia with hemoglobin of 10.9 and hematocrit of 32.3. Chemistry significant for hyponatremia with sodium of 121, potassium of 2.6, chloride of 87, BUN 3, creatinine of 0.38. IMPRESSION: 1. Pancreatic mass suspicious for pancreatic cancer with associated liver metastasis. 2. Severe hyponatremia. 3. Microcytic anemia. 4. Patchy multilobar ground-glass opacities in the lung. 5. Left supraclavicular lympadenopathy An unfortunate 36-year-old female who presented with gastrointestinal symptoms and was found to have pancreatic mass suspicious for primary pancreatic cancer with extensive metastasis to the lymph nodes and liver. Examination revealed left supraclavicular lymphadenopathy(virchow's node) which can be seen in several malignancies especially gastric cancer. Agree with plan for endoscopic ultrasound with biopsy tomorrow. We would also recommend obtaining anemia laboratories including iron studies given microcytic anemia. Please also check CA19-9 and CEA. She would benefit from outpatient PET/CT, which can be arranged upon discharge from hospital. Ultimately, treatment options will depend on final pathology after biopsy. If biopsy confirms metastatic pancreatic cancer, she would be a candidate for FOLFIRINOX, for which she will require MediPort placement. Given her young age and family history of breast and gastrointestinal malignancies, she would also benefit from genetic testing, which can also be arranged as an outpatient to evaluate for hereditary syndromes associated with pancreatic/gastric cancer. Will also obtain somatic mutation analysis on tumor sample.If she is found to have germline/somatic mutation, she may be a candidate for maintenance targeted therapy if pancreatic malignancy is confirmed. In the meantime, agree with repletion of electrolytes, which I suspect is most likely due to dehydration. PLAN: 1. Agree with biopsy to confirm malignancy and establish primary. 2. Please check CA19-9, CEA as well as iron studies. 3. She would require germline and somatic mutation analysis, which will be arranged for as an outpatient. 4. If malignancy is confirmed, can consider MediPort placement while inpatient. If this cannot be arranged prior to discharge, we will set her up for outpatient MediPort placement in anticipation for chemotherapy administration. Thank you for this consult. Oncology will continue following while the patient is in the hospital. Please feel free to call if you have any further questions. Job ID: [id number] [facility]
[2021-05-27] MEDS ORDERED: DEXTROSE 5% 1,000 ML IV SCH (09:45)
[2021-05-27] MEDS ORDERED: MIDAZOLAM HCL 1 MG/ML 2ML VIAL ONE (09:58)
[2021-05-27] MEDS ORDERED: fentaNYL citrate 100 MCG/2 ML VIAL ONE (09:58)
--- NOTE | 2021-05-27 10:50 | Operative Report ---
Post Operative Report Pre & Post Diagnosis Operation Date: 05/27/21 07:00 Pre-Op Diagnosis: METASTATIC PANCREATIC CANCER,LOW POTASSIUM &SODIUM I identified the patient and participated in the time-out.: Yes Procedure Operation Date: 05/27/21 07:00 <No data on this case meets the specified criteria> Surgeon Ruma Solomon MD Supervisor [employer] None Estimated Blood Loss 0 Findings See Below (Pancreas mass biopsied) Specimens FNA panc mass Description of Procedure EUS I attest to the content of the Intraoperative Record and any orders documented therein. Any exceptions are noted below.
--- NOTE | 2021-05-27 11:08 | GI REPORT ---
Patient Name: Samantha Lambert Procedure Date: 05/27/2021 10:01 AM Date of : 1985 Admit Type: Inpatient Age: 36 Gender: Female Attending MD: Ruma Solomon MD Procedure: Upper GI endoscopy Providers: Ruma Solomon MD Referring MD: Maury Ying Md Indications: Abnormal CT of the GI tract Medicines: Propofol per Anesthesia Complications: No immediate complications. Estimated Blood Loss: Estimated blood loss: none. Procedure: Pre-Anesthesia Assessment: - Prior to the procedure, a History and Physical was performed, and patient medications, allergies and sensitivities were reviewed. The patient's tolerance of previous anesthesia was reviewed. - The risks and benefits of the procedure and the sedation options and risks were discussed with the patient. All questions were answered and informed consent was obtained. - Patient identification and proposed procedure were verified prior to the procedure by the physician and the nurse. The procedure was verified in the procedure room. - Pre-procedure physical examination revealed no contraindications to sedation. After obtaining informed consent, the endoscope was passed under direct vision. Throughout the procedure, the patient's blood pressure, pulse, and oxygen saturations were monitored continuously. The Endoscope was introduced through the mouth, and advanced to the second part of duodenum. The upper GI endoscopy was accomplished without difficulty. The patient tolerated the procedure well. Findings: The examined esophagus was normal. Extrinsic compression on the stomach was found in the gastric body. The duodenal bulb and second portion of the duodenum were normal. Impression: - Normal esophagus. - Extrinsic compression in the gastric body. - Normal duodenal bulb and second portion of the duodenum. Recommendation: - Perform an upper endoscopic ultrasound (UEUS) today. Ruma Solomon MD 05/27/2021 11:08:14 AM This report has been signed electronically. Note Initiated On: 05/27/2021 10:01 AM Number of Addenda: 0 I attest to the content of the Intraoperative Record and orders documented therein, exceptions below {[id number]}
[2021-05-27] MEDS ORDERED: PROMETHAZINE HCL 12.5 MG in SODIUM CHLORIDE 0.9% 50 ML IV PRN (11:09)
[2021-05-27] MEDS ORDERED: HYDROmorphone INJ 2 MG/ML SYR/VIAL IV PRN (11:09)
[2021-05-27] MEDS ORDERED: ONDANSETRON INJ 2 MG/ML 2 ML VIAL IV PRN (11:09)
[2021-05-27] MEDS ORDERED: fentaNYL citrate 100 MCG/2 ML VIAL IV PRN (11:09)
[2021-05-27] MEDS ORDERED: ATROPINE SULFATE 0.1 MG/ML 10ML SYR IV PRN (11:09)
[2021-05-27] MEDS ORDERED: ePHEDrine sulfate 50 MG/ML AMP IV PRN (11:09)
--- NOTE | 2021-05-27 11:15 | GI REPORT ---
Patient Name: Samantha Lambert Procedure Date: 05/27/2021 10:00 AM Date of : 1985 Admit Type: Inpatient Age: 36 Gender: Female Attending MD: Ruma Solomon MD Procedure: Upper EUS Providers: Ruma Solomon MD Referring MD: Maury Ying Md Indications: Suspected mass in pancreas on CT scan Medicines: Propofol per Anesthesia Complications: No immediate complications. Estimated Blood Loss: Estimated blood loss: none. Procedure: Pre-Anesthesia Assessment: - Prior to the procedure, a History and Physical was performed, and patient medications, allergies and sensitivities were reviewed. The patient's tolerance of previous anesthesia was reviewed. - The risks and benefits of the procedure and the sedation options and risks were discussed with the patient. All questions were answered and informed consent was obtained. - Patient identification and proposed procedure were verified prior to the procedure by the physician and the nurse. The procedure was verified in the procedure room. - Pre-procedure physical examination revealed no contraindications to sedation. After obtaining informed consent, the endoscope was passed under direct vision. Throughout the procedure, the patient's blood pressure, pulse, and oxygen saturations were monitored continuously. The Endosonoscope was introduced through the mouth, and advanced to the second part of duodenum. The upper EUS was accomplished without difficulty. The patient tolerated the procedure well. Findings: ENDOSONOGRAPHIC FINDING: : There was no sign of significant endosonographic abnormality in the ampulla. No masses were identified. There was no sign of significant endosonographic abnormality in the common bile duct. The maximum diameter of the duct was 4 mm. No stones and no biliary sludge were identified. Moderate hyperechoic material consistent with sludge was visualized endosonographically in the gallbladder. There was no sign of significant endosonographic abnormality in the visualized portion of the left lobe of the liver. An oval mass was identified in the pancreatic body. The mass was hypoechoic. The mass measured 40 mm by 30 mm in maximal cross-sectional diameter. The endosonographic borders were well-defined. There was sonographic evidence suggesting invasion into the celiac trunk (manifested by encasement) and the splenic artery (manifested by encasement). An intact interface was seen between the mass and the adjacent structures suggesting a lack of invasion. The remainder of the pancreas was examined. The endosonographic appearance of parenchyma and the upstream pancreatic duct indicated parenchymal atrophy. Fine needle biopsy was performed. Color Doppler imaging was utilized prior to needle puncture to confirm a lack of significant vascular structures within the needle path. Five passes were made with the 25 gauge [place] EchoTip Ultra biopsy needle using a transgastric approach. A visible core of tissue was obtained. The cellularity of the specimen was adequate. Final cytology results are pending. Verification of patient identification for the specimen was done by the physician and nurse using the patient's name and date. This was staged T4 N2 Mx by endosonographic criteria. The staging applies if malignancy is confirmed. A few malignant-appearing lymph nodes were visualized in the celiac region (level 20). The nodes were hypoechoic. There was no sign of significant endosonographic abnormality in the visualized portion of the left adrenal gland. Impression: - A large mass was identified in the pancreatic body. Fine needle biopsy performed. - A few malignant-appearing lymph nodes were visualized in the celiac region (level 20). - There was no sign of significant pathology in the ampulla. - There was no sign of significant pathology in the common bile duct. - Hyperechoic material consistent with sludge was visualized endosonographically in the gallbladder. - There was no evidence of significant pathology in the visualized portion of the liver. No obvious masses seen. - Endosonographic images of the left adrenal gland were unremarkable. Recommendation: - [facility]. - Await cytology results. - Refer to an oncologist. Ruma Solomon MD 05/27/2021 11:15:16 AM This report has been signed electronically. Note Initiated On: 05/27/2021 10:00 AM Number of Addenda: 0 I attest to the content of the Intraoperative Record and orders documented therein, exceptions below {[id number]}
--- NOTE | 2021-05-27 11:46 | Consultation Report ---
NEPHROLOGY CONSULTATION NOTE DATE OF SERVICE: 05/27/2021 REASON FOR CONSULTATION: Hyponatremia. HISTORY OF PRESENT ILLNESS: The patient is a 36-year-old Korean-L[place] female who presented to the hospital because of back pain as well as poor appetite for the last 1 week and occasional vomiting. She has lost about 5 kilos in the last 1 week. She has been trying to drink fluids, but was not eating much food. She had no prior known medical problems and no prior surgery. In the Emergency Department, she was hemodynamically stable with normal vital signs. However, blood work showed hyponatremia, hypokalemia and anemia. She underwent CT abdomen and pelvis, which revealed a large infiltrative pancreatic body mass suggestive of primary pancreatic adenocarcinoma with metastasis. There was also mention about vascular involvement. Since admission, she has received normal saline with potassium supplement, and with that, serum sodium has gone up from 121 to 136 in about a 24-hour time period. Potassium has since then normalized from 2.6 on admission. She is scheduled to go for biopsy to confirm malignancy and to establish the primary diagnosis. She is making urine. ALLERGIES: None. HOME MEDICATIONS: No scheduled medications. PAST MEDICAL AND SURGICAL HISTORY: She has no medical or surgical history of anything. FAMILY HISTORY: Uncle of gastric cancer. Otherwise, no renal disease or pertinent family history. SOCIAL HISTORY: Former smoker. No alcohol or smoking. She is , lives with her spouse and 2 children. REVIEW OF SYSTEMS: Other than nausea, poor appetite, occasional vomiting, weight loss and some abdominal and back pain, everything else was normal. PHYSICAL EXAMINATION: GENERAL: A petite Korean-Leb[place] female, awake, alert, oriented x3. HEENT: Mucous membranes are moist. NECK: Supple. No jugular venous distention. CHEST: Bilaterally clear to auscultation. CARDIOVASCULAR: S1 and S2 regular. ABDOMEN: Tender diffusely, especially in the right upper abdomen and midline abdomen. EXTREMITIES: Show no edema. LABORATORY TEST: Reviewed. At the time of admission yesterday, sodium was 121, this morning is 136. Potassium was 2.6, now it is 3.8. BUN 3, creatinine 0.49, sodium 136, potassium 3.8, chloride 106, bicarbonate 25, calcium 8.5, albumin 3.9. Hemoglobin 11.2, WBC count 5.8, platelet count 347. ASSESSMENT AND PLAN: A 36-year-old female admitted with what appears to be a case of advanced malignancy related with pancreas with extensive local metastasis. I have been consulted for hyponatremia. Hyponatremia: Will assume this is new. This is in the setting of pancreatic cancer. However, sodium improved really fast from 121 to 136 in a very short period of time, which means this could be a true sodium deficit/hypovolemic hyponatremia. Sodium improved a little too fast than ideal, so I would stop the normal saline, give her about 500 mL of D5 that should slow down the rate of correction. No further workup is needed for hyponatremia as the diagnosis has already been established and we have already been able to correct the sodium. She should have another BMP later today and then once daily should be enough. Job ID: [id number] [facility]
[2021-05-27] MEDS: PANTOprazole 40 MG TAB PO SCH ×2 (11:55→20:27)
[2021-05-27] MEDS: POLYETHYLENE (MIRALAX) 17 GM PACK PO SCH (11:55)
[2021-05-27] MEDS: MULTIVITAMIN TAB PO SCH (11:55)
--- NOTE | 2021-05-27 12:59 | Anesthesiology Progress Note ---
Date of Service May 27, 2021 Anesthesia Post Procedure Vital Signs Vital Signs: Temp Pulse Pulse Pulse Resp BP Pulse Ox 05/27/21 12:30 36.9 C 96 H 18 118/78 98 05/27/21 11:52 36.9 C 89 18 125/83 98 05/27/21 11:30 36.4 C L 78 13 115/71 97 05/27/21 11:20 80 13 122/79 96 05/27/21 11:10 83 18 128/83 98 05/27/21 11:00 36.1 C L 90 12 120/70 98 05/27/21 09:43 36.5 C 101 H 20 128/87 96 05/27/21 08:54 36.9 C 85 16 111/75 97 05/27/21 02:53 36.6 C 95 H 18 109/73 98 05/26/21 23:04 36.8 C 75 17 129/81 97 05/26/21 19:26 36.9 C 80 18 110/73 97 05/26/21 14:50 87 05/26/21 14:30 36.8 C 86 16 122/76 99 05/26/21 13:06 Pulse Ox 05/27/21 12:30 05/27/21 11:52 05/27/21 11:30 05/27/21 11:20 05/27/21 11:10 05/27/21 11:00 05/27/21 09:43 05/27/21 08:54 05/27/21 02:53 05/26/21 23:04 05/26/21 19:26 05/26/21 14:50 05/26/21 14:30 05/26/21 13:06 97 Pain Intensity Left Abdomen: Pain Intensity: 1 Transfer of Care Handoff Completed per policy Notes Mental Status: alert / awake / arousable and participated in evaluation Patient Amnestic to Procedure: Yes Nausea / Vomiting: adequately controlled Pain: adequately controlled Airway Patency, RR, SpO2: stable & adequate BP & HR: stable & adequate Hydration State: stable & adequate Anesthetic Complications: no major complications apparent
[2021-05-27] MEDS ORDERED: DEXTROSE 5% 500 ML IV ONE (13:06)
[2021-05-27] MEDS: ACETAMINOPHEN 325 MG TAB PO PRN ×2 (13:26→21:28)
--- NOTE | 2021-05-27 15:07 | Hospitalist Progress Note ---
Date of Service May 27, 2021 Assessment & Plan (1) Metastasis from pancreatic cancer: (2) Abdominal pain: (3) Hypokalemia: (4) Hyponatremia: Plan: This is a 36 yr old Guinean speaking female who is otherwise healthy except for chronic constipation who presents to ED 2/2 to low back pain x 1 month. Metastatic Disease -- CT ABD:Large infiltrative pancreatic body mass suggestive of primary pancreatic adenocarcinoma results in upstream pancreatic ductal dilation. Vascular involvement includes occlusion of the splenic vein with encasement of the celiac trunk vessels resulting in narrowing of the splenic artery. Hepatic metastasis are noted along with multifocal gastrohepatic, periportal and retroperitoneal lymphatic metastasis. Lymphatic metastasis encase the superior mesenteric and renal arteries. There is wall thickening with adjacent i nflammatory stranding involving the greater curvature of the proximal stomach suspicious for gastric invasion. Periportal edema without evidence of biliary obstruction. Moderate fecal retention. --S/P EUS: A large mass was identified in the pancreatic body. Fine-needle biopsy performed. A few malignant appearing lymph nodes were visualized in the celiac region. No signs of significant pathology in the ampulla. No signs of significant pathology in the common bile duct. Hyperechoic material consistent with sludge was visualized Endosonographically in the gallbladder. No evidence of significant pathology visualized portion of the liver. No obvious masses seen. Endoscopic images of the left adrenal gland were unremarkable. --Chest CT:Patchy multilobar multifocal distribution of groundglass and irregular consolidative opacities are noted with tree-in-bud nodules. Findings may be infectious or inflammatory, however follow-up is needed to exclude pulmonary metastasis. Mild bibasilar mucous plugging. Pancreatic mass with possible gastric invasion, hepatic and lymphatic metastasis are better characterized on the CT abdomen and pelvis study of same day. --Pathology Pending --CA 19-9, CEA ordered -- Appreciate oncology, GI input Needs follow-up with oncology upon discharge Pain Control Advance diet as tolerated Hypomagnesemia Hypokalemia likely due to GI loss and poor intake replace and monitor Hyponatremia Likely hypovolemic hyponatremia Sodium 121>>>136 Appreciate nephrology input D5 water to help with rapid correction Monitor Sodium levels No mental status change Constipation Continue bowel regimen Anemia of Chronic disease No obvious source of bleeding Hb stable check Iron studies Microscopic hematuria Incidentally noted Repeat UA better Severe Protein 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 Code Status Full Code Disposition Home Admission and Anticipated Discharge Date Admission Date: May 26, 2021 Subjective Patient is seen and examined bedside Had EGD earlier today Offers no new complaints today Denies any significant abdominal pain Also denies any nausea, vomiting, chest pain, shortness of breath Discussed with nephrology and GI today Review of Systems Review of Systems: All systems reviewed & are unremarkable except as noted in Subjective Physical Exam Physical Exam: Physical Exam: Vitals signs as noted above General Appearance:Moderately built and nourished, no apparent distress Head: normocephalic, Atraumatic Eyes: normal inspection, EOMI Neck: supple, Trachea midline Respiratory/Chest: Normal breath sounds, CTA, No accessory muscle use Cardiovascular: S1, S2, No murmur Abdomen/GI:Soft, mild epigastric tender, Bowel sounds present Extremities/Musculoskeletal:normal inspection, no edema Neurologic/Psych:AAOX3, grossly no focal neurological deficits Skin: normal color, warm Results & Data Results & Data ([facility]) Vital Signs (Past 12 Hours) Vital Signs Temp Pulse Pulse Resp BP Pulse Ox 05/27/21 12:30 36.9 C 96 H 18 118/78 98 05/27/21 11:52 36.9 C 89 18 125/83 98 05/27/21 11:30 36.4 C L 78 13 115/71 97 05/27/21 11:20 80 13 122/79 96 05/27/21 11:10 83 18 128/83 98 05/27/21 11:00 36.1 C L 90 12 120/70 98 05/27/21 09:43 36.5 C 101 H 20 128/87 96 05/27/21 08:54 36.9 C 85 16 111/75 97 Laboratory Results Short CBC 05/27/21 Range/Units 05:53 WBC 5.85 (4.8-10.8) K/uL Hgb 11.2 L (12.0-16.0) g/dL Hct 33.9 L (37-47) % Plt Count 347 (130-400) K/uL BMP 05/26/21 05/27/21 05/27/21 17:40 00:33 05:53 Sodium 131 L 135 L 136 Potassium 3.1 L 3.8 D 3.7 Chloride 100 105 106 Carbon Dioxide 24 23 25 BUN 2 L 3 L 3 L Creatinine 0.50 L 0.43 L 0.46 L Glucose 266 H 102 H 99 Calcium 8.6 8.5 8.6 05/27/21 05:53 Sodium 136 Potassium 3.8 Chloride 106 Carbon Dioxide 25 BUN 3 L Creatinine 0.49 L Glucose 100 H Calcium 8.5 Liver Function 05/27/21 Range/Units 05:53 Total Bilirubin 0.4 (0.2-1.0) mg/dl AST 13 (13-39) U/L ALT 11 (7-52) U/L Alkaline Phosphatase 63 (34-104) U/L Albumin 3.9 (3.4-5.0) gm/dl Urine 05/26/21 Range/Units 16:30 Urine Color Yellow Urine Appearance Clear (Clear) Urine pH 7.0 (4.5-7.5) Ur Specific [place] 1.002 (1.000-1.030) Urine Protein Negative (Negative) Urine Glucose (UA) Negative (Negative)
[2021-05-27 19:55] LABS: Iron 16 mcg/dl (35-150); Total Iron Binding Cap Calc 357 mcg/dl (250-450); Transferrin (FE) Percent Satur 4 % (15-50); Unsaturated Iron Binding Cap 341 mcg/dl (155-355)
[2021-05-27 20:13] LABS: Ferritin 9.3 ng/ml (8-388)
[2021-05-27 20:24] LABS: BUN Creatinine Ratio 9.8 (10-20); Calcium 9.4 mg/dl (8.5-10.1); Creatinine Clr Calc Pharmacy 104.4 ml/min; Est GFR (African American) 134.2 ml/min; Est GFR (Non-African American) 115.8 ml/min; Potassium 3.9 mmol/L (3.5-5.1)
[2021-05-27] MEDS: DOCUSATE SODIUM/SENNA 50/8.6MG TAB PO SCH (20:32)
[2021-05-28] MEDS: MoRPHine SULFATE 2 MG/ML CARP IV PRN ×2 (02:37→09:05)
[2021-05-28 06:09] LABS: BUN Creatinine Ratio 11.8 (10-20); Calcium 8.9 mg/dl (8.5-10.1); Creatinine Clr Calc Pharmacy 124.9 ml/min; Est GFR (African American) 142.4 ml/min; Est GFR (Non-African American) 122.8 ml/min; Potassium 3.8 mmol/L (3.5-5.1)
[2021-05-28] MEDS ORDERED: IRON SUCROSE 200 MG in 0.9 % SODIUM CHLORIDE 100 ML IV ONE (08:45)
[2021-05-28] MEDS: PANTOprazole 40 MG TAB PO SCH (08:51)
[2021-05-28] MEDS: MULTIVITAMIN TAB PO SCH (08:51)
[2021-05-28] MEDS: POLYETHYLENE (MIRALAX) 17 GM PACK PO SCH (08:52)
[2021-05-28] MEDS ORDERED: oxyCODONE HCL IR 5 MG TAB (IMMEDIATE RELEASE) PO PRN (10:26)
--- NOTE | 2021-05-28 10:31 | Hospitalist Progress Note ---
Date of Service May 28, 2021 Assessment & Plan (1) Metastasis from pancreatic cancer: (2) Abdominal pain: (3) Hypokalemia: (4) Hyponatremia: Plan: This is a 36 yr old Romanian speaking female who is otherwise healthy except for chronic constipation who presents to ED 2/2 to low back pain x 1 month. Metastatic Disease -- CT ABD:Large infiltrative pancreatic body mass suggestive of primary pancreatic adenocarcinoma results in upstream pancreatic ductal dilation. Vascular involvement includes occlusion of the splenic vein with encasement of the celiac trunk vessels resulting in narrowing of the splenic artery. Hepatic metastasis are noted along with multifocal gastrohepatic, periportal and retroperitoneal lymphatic metastasis. Lymphatic metastasis encase the superior mesenteric and renal arteries. There is wall thickening with adjacent i nflammatory stranding involving the greater curvature of the proximal stomach suspicious for gastric invasion. Periportal edema without evidence of biliary obstruction. Moderate fecal retention. --S/P EUS: A large mass was identified in the pancreatic body. Fine-needle biopsy performed. A few malignant appearing lymph nodes were visualized in the celiac region. No signs of significant pathology in the ampulla. No signs of significant pathology in the common bile duct. Hyperechoic material consistent with sludge was visualized Endosonographically in the gallbladder. No evidence of significant pathology visualized portion of the liver. No obvious masses seen. Endoscopic images of the left adrenal gland were unremarkable. --Chest CT:Patchy multilobar multifocal distribution of groundglass and irregular consolidative opacities are noted with tree-in-bud nodules. Findings may be infectious or inflammatory, however follow-up is needed to exclude pulmonary metastasis. Mild bibasilar mucous plugging. Pancreatic mass with possible gastric invasion, hepatic and lymphatic metastasis are better characterized on the CT abdomen and pelvis study of same day. --Pathology Pending --CA 19-9: Pending , CEA 6.5 -- Appreciate oncology, GI input Needs follow-up with oncology upon discharge Pain Control Tolerating regular diet Patient planning to return to [facility] for further care Hypomagnesemia Hypokalemia likely due to GI loss and poor intake replace and monitor Hyponatremia Likely hypovolemic hyponatremia Sodium 121>>>136>>134 Appreciate nephrology input Received D5 water to help with rapid correction Monitor Sodium levels No mental status change Constipation Continue bowel regimen Anemia of Chronic disease Iron deficiency anemia No obvious source of bleeding Hb stable Started on Iron supplements Microscopic hematuria Incidentally noted Repeat UA better Severe Protein 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 Code Status Full Code Disposition Home Patient planning to return to [facility] for further care Admission and Anticipated Discharge Date Admission Date: May 26, 2021 Subjective Patient is seen and examined bedside States having back pain today Also has nausea intermittently Denies any vomiting, chest pain, shortness of breath Review of Systems Review of Systems: All systems reviewed & are unremarkable except as noted in Subjective Physical Exam Physical Exam: Physical Exam: Vitals signs as noted above General Appearance:Moderately built and nourished, no apparent distress Head: normocephalic, Atraumatic Eyes: normal inspection, EOMI Neck: supple, Trachea midline Respiratory/Chest: Normal breath sounds, CTA, No accessory muscle use Cardiovascular: S1, S2, No murmur Abdomen/GI:Soft, mild epigastric tender, Bowel sounds present Extremities/Musculoskeletal:normal inspection, no edema Neurologic/Psych:AAOX3, grossly no focal neurological deficits Skin: normal color, warm Results & Data Results & Data ([facility] [place]) Vital Signs (Past 12 Hours) Vital Signs Temp Pulse Resp BP Pulse Ox 05/28/21 08:00 36.8 C 76 18 124/63 96 05/28/21 03:49 36.8 C 82 18 122/85 97 05/27/21 23:47 36.8 C 76 16 120/76 97 Laboratory Results BMP 05/27/21 05/28/21 19:10 05:15 Sodium 135 L 134 L Potassium 3.9 3.8 Chloride 103 103 Carbon Dioxide 25 26 BUN 6 6 Creatinine 0.61 0.51 L Glucose 153 H 110 H Calcium 9.4 8.9
--- NOTE | 2021-05-28 10:44 | Discharge Summary ---
Date of Service May 28, 2021 Admission HPI Per Admitting Provider This is a 36 yr old [place] speaking female who is otherwise healthy except for chronic constipation who presents to ED 2/2 to low back pain x 1 month. Pain is mostly in mid to lower back, L greater than R. It is worse at night and with lying down. Pain improves with standing. It is constant but waxes and wanes in severity. She further complains of constipation, nausea, poor appetite x 1 week and emesis x 2 last evening. She denies any hematemesis, melena, hematochezia, f/c/s, dizziness, lightheaded, chest pain, sob, uri sx, dysuria, increased urinary freq/urgency or hematuria. Over past week she has lost 5kg. She has been maintaining her fluids with 1-2L of water daily. She does complain of post prandial epigastric pain. is at bedside. She has no known medical problems and no prior surgeries. She does have a FH of uncle who recently passed of gastric cancer and 90 yr old GMA who passed of gastric cancer. In ED pt was hemodynamically stable. She was found to have hyponatremia, hypokalemia, and anemia. She underwent CT a/p which revealed Large infiltrative pancreatic body mass suggestive of primary pancreatic adenocarcinoma results in upstream pancreatic ductal dilation. Vascular involvement includes occlusion of the splenic vein with encasement of the celiac trunk vessels resulting in narrowing of the splenic artery. 2. Hepatic metastasis are noted along with multifocal gastrohepatic, periportal and retroperitoneal lymphatic metastasis. Lymphatic metastasis encase the superior mesenteric and renal arteries. 3. There is wall thickening with adjacent inflammatory stranding involving the greater curvature of the proximal stomach suspicious for gastric invasion. ED provider did discuss cased with oncology Dr. Barnard who recommended admission and possible biopsy as well as electrolyte repletion. Admission Exam Per Admitting Provider Physical Exam Physical Exam: Constitutional: WD/WN, petite, haitian female, vitals as above, NAD, sitting up in bed, pleasant, conversing easily Head: Normocephalic, Atraumatic Eyes: PERRL, conjunctivae normal, anicteric sclerae ENMT: external ear and nose normal, oropharynx normal Neck: trachea midline, no thyromegaly normal visual inspection Respiratory: normal respiratory effort, lungs clear to auscultation, no wheeze, rales, rhonchi. Normal insp/exp effort, no accessory muscle use Cardiovascular: RRR, no murmur, no edema Vessels: no JVD or carotid bruit Chest: normal inspection of chest Abdomen: normal bowel sounds, soft, nontender, mild distension Musculoskeletal: no cyanosis or clubbing, extremities motor strength 5/5 Skin: no rashes, warm and dry normal turgor Neurologic: PERRL, EOMI, accommodation nl, no face palsy, no dysarthria CN's II-XI intact bilaterally and moves all extremities Psychiatric: A+Ox3, euthymic affect Lymphatic: no cervical or axillary lymphadenopathy : deferred Principal Diagnosis Suspected metastatic pancreatic cancer Hypomagnesemia Hypokalemia Hyponatremia Iron deficiency anemia Severe Protein Calorie Malnutrition Discharge Data Allergies Allergy/AdvReac Type Severity Reaction Status Date / Time No Known Allergies Allergy Unverified 05/26/21 08:02 Consultations 05/26/21 09:32 Consult Gastroenterology Routine 05/26/21 10:35 Consult Nephrology Routine 05/26/21 12:00 ED Decision to Admit Stat 05/26/21 14:39 Consult Oncology Routine 05/28/21 10:26 Burn CD for patient Routine Procedures Performed Operation Date: 05/27/21 07:00 Actual Procedures p Endoscopic Ultrasonography Upper - Ruma Solomon MD Ordered Studies 05/26/21 06:37 CT abd pelvis IV con only Stat 05/26/21 10:29 CT chest diagnostic wo con Stat CT head/brain wo con Stat CT lumbar spine wo con Stat CT thoracic spine wo con Stat 05/27/21 09:49 US upper EUS PACS images Routine Hospital Course (1) Metastasis from pancreatic cancer: (2) Abdominal pain: (3) Hypokalemia: (4) Hyponatremia: This is a 36 yr old [place] speaking female who is otherwise healthy except for chronic constipation who presents to ED 2/2 to low back pain x 1 month. Metastatic Disease -- CT ABD:Large infiltrative pancreatic body mass suggestive of primary pancreatic adenocarcinoma results in upstream pancreatic ductal dilation. Vascular involvement includes occlusion of the splenic vein with encasement of the celiac trunk vessels resulting in narrowing of the splenic artery. Hepatic metastasis are noted along with multifocal gastrohepatic, periportal and retroperitoneal lymphatic metastasis. Lymphatic metastasis encase the superior mesenteric and renal arteries. There is wall thickening with adjacent inflammatory stranding involving the greater curvature of the proximal stomach suspicious for gastric invasion. Periportal edema without evidence of biliary obstruction. Moderate fecal retention. --S/P EUS: A large mass was identified in the pancreatic body. Fine-needle biopsy performed. A few malignant appearing lymph nodes were visualized in the celiac region. No signs of significant pathology in the ampulla. No signs of significant pathology in the common bile duct. Hyperechoic material consistent with sludge was visualized Endosonographically in the gallbladder. No evidence of significant pathology visualized portion of the liver. No obvious masses seen. Endoscopic images of the left adrenal gland were unremarkable. --Chest CT:Patchy multilobar multifocal distribution of groundglass and irregular consolidative opacities are noted with tree-in-bud nodules. Findings may be infectious or inflammatory, however follow-up is needed to exclude pulmonary metastasis. Mild bibasilar mucous plugging. Pancreatic mass with possible gastric invasion, hepatic and lymphatic metastasis are better characterized on the CT abdomen and pelvis study of same day. --CT Head:No acute intracranial abnormality. --Lumbar CT:No evidence of acute bony injury. --Thoracic CT:No abnormality of the thoracic spine. No acute fracture. No lesions identified by CT. --Pathology Pending --CA 19-9: Pending -- CEA levels: 6.5 -- Appreciate oncology, GI input Needs follow-up with oncology upon discharge Pain Control Tolerating regular diet Patient planning to return to [facility] for further care Hypomagnesemia Hypokalemia likely due to GI loss and poor intake replace and monitor Hyponatremia Likely hypovolemic hyponatremia Sodium 121>>>[id number] Appreciate nephrology input Received D5 water to help with rapid correction Monitor Sodium levels No mental status change Constipation Continue bowel regimen Anemia of Chronic disease Iron deficiency anemia No obvious source of bleeding Hb stable Started on Iron supplements Microscopic hematuria Incidentally noted Repeat UA better Severe Protein 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 Code Status Full Code Disposition Home Patient planning to return to [facility] for further care Total Time Total Time Spent Total Time Spent (In Minutes): 55 minutes Discharge Plan Discharge Items Patient Disposition: Home - Self-Care Reason For Visit: METASTATIC PANCREATIC CANCER,LOW POTASSIUM &SODIUM Discharge Diagnosis: Suspected metastatic pancreatic cancer Hypomagnesemia Hypokalemia Hyponatremia Iron deficiency anemia Severe Protein Calorie Malnutrition Activity: Per Instructions section Exercise/Sports: Wait until after follow-up appointment Non-emergency contact: Primary Care Provider and Oncologist Call non-emergency contact if: you have any medication questions, your symptoms worsen, your pain is concerning for you and you have a fever Follow-up/Referrals: PCP,NO [Primary Care Provider] - Diet: Regular Addtl Attending Provider Instructions: Follow up with your Physician in [place] for further management. Pending Studies at Discharge: Yes Studies:: Pathology, CA-19-9 Stand-Alone Forms: My [facility], Smoking Cessation Medications and DC Order Prescriptions: New polyethylene glycol 3350 [Miralax] 17 gram Powder In Packet 17 g PO DAILY PRN (Reason: constipation) Qty: 30 RF: 0 ferrous sulfate 325 mg (65 mg iron) Tablet,Delayed Release (Dr/Ec) 325 mg PO BIDM Qty: 60 RF: 0 oxycodone 5 mg Tablet 5 mg PO Q6H PRN (Reason: pain) Qty: 20 RF: 0 docusate sodium [Colace] 100 mg capsule 100 mg PO BID PRN (Reason: constipation ) Qty: 30 RF: 0 ondansetron HCl 4 mg tablet 4 mg PO Q8H PRN (Reason: nausea and vomiting) Qty: 30 RF: 0 Continued multivitamin Tablet 1 tab PO QAM RF: 0 bisacodyl [Dulcolax (bisacodyl)] 5 mg Tablet,Delayed Release (Dr/Ec) 5 mg PO UD RF: 0 cyclobenzaprine 5 mg tablet 5 mg PO BID PRN (Reason: Muscle Spasm) RF: 0 levocetirizine 5 mg tablet 5 mg PO BID RF: 0 Discharge Orders: Discharge Order (Routine); Ordered 05/28/21 Ordered By: Maury Ying Admission Data Admit Date/Time: 05/26/21 09:32 Attending Provider: Maury Ying Admit Provider: Maury Ying Primary Care Provider: PCP,NO Other Providers: Rhett Nova ; Carlos Myers ; Maury Ying ; Mena Barnard
[2021-05-28] MEDS ORDERED: oxyCODONE HCL 10 MG TABCR (OxyCONTIN) PO SCH (21:00)
[2021-05-29] MEDS ORDERED: FERROUS SULFATE 325 MG TAB PO SCH (09:00)
== END 2021-05-28 13:25 | disposition home or self-care (01) | DRG 435 ==
LOC: ED 05:26 → EDINP 09:32 → 2S 12:44